=== PATIENT | female | born 1965 | race Hispanic/Latino ===

== ENCOUNTER 2024-07-16 05:59 | Day surgery (SDC) | payer OTHER ==
[~2024-07-16] VITALS: Ht 152.4 cm; Wt 104.3 kg
[2024-07-16] VITALS (11 sets, daily range): BP systolic 98–133; BP diastolic 51–65; PULSE 7–78; RESP 15–16; TEMP 97.3–98.1
[~2024-07-16 05:59] MED LIST: INSU100I26 SQ; LEVO25CA4 PO; METF-527 PO; METO10TA41 PO; PRILOSEC PO
[2024-07-16] MEDS: 0.9%NACL 1000ML 1,000 ML IV ONE (06:59)
[2024-07-16] MEDS ORDERED: proPOFol 10 MG/ML 20ML VIAL IV ONE ×3 (08:22→08:33)
== END 2024-07-16 09:50 | disposition home or self-care (01) ==
LOC: ENDO 05:59 → DAH 05:59 → ENDO 09:50
PROVIDERS: ATTEND Internal Medicine
DX: D50.0 Iron deficiency anemia secondary to blood loss (chronic) (principal); K31.811 Angiodysplasia of stomach and duodenum with bleeding; K31.89 Other diseases of stomach and duodenum; E11.9 Type 2 diabetes mellitus without complications; Z79.84 Long term (current) use of oral hypoglycemic drugs; Z79.899 Other long term (current) drug therapy; Z53.8 Procedure and treatment not carried out for other reasons
CPT/HCPCS: 43255; 82948 ×2; 45378; J7030 ×2; J2704 ×2; A4649; A4615; A4215 ×2; A4223; A4222; A4221; A4663; A4606; G0121; J3490

== ENCOUNTER 2024-08-13 07:32 | Day surgery (SDC) | payer OTHER ==
[~2024-08-13] VITALS: Ht 152.4 cm; Wt 104.3 kg
[2024-08-13] VITALS (11 sets, daily range): BP systolic 120–145; BP diastolic 38–77; PULSE 75–89; RESP 12–18; TEMP 97.3–97.5
[2024-08-13] MEDS: 0.9%NACL 1000ML 1,000 ML IV ONE (10:45)
[2024-08-13] MEDS ORDERED: proPOFol 10 MG/ML 20ML VIAL IV ONE (11:09)
[2024-08-13] MEDS ORDERED: LIDOCAINE HCL 1% 20 ML VIAL ONE (11:10)
--- NOTE | 2024-08-13 12:38 | NUR ---
Patient aox4. Denies c/o pain or discomfort. Voiced understanding to EGD precautions and follow up expectations. Full liquid diet importance. Ambulated to bathroom with standby assist. Voided large amount of clear urine. PIV discontinued with catheter tip intact. Full and complete Discharge instructions given to Patient and Family. All questions answered. W/C to POV with Family to Home.
== END 2024-08-13 12:30 | disposition home or self-care (01) ==
LOC: ENDO 07:32 → DAH 07:32 → ENDO 12:30
PROVIDERS: ATTEND Internal Medicine Gastroenterology
DX: D50.9 Iron deficiency anemia, unspecified (principal); K31.89 Other diseases of stomach and duodenum; K21.00 Gastro-esophageal reflux disease with esophagitis, without bleeding; K29.50 Unspecified chronic gastritis without bleeding; K31.811 Angiodysplasia of stomach and duodenum with bleeding; K92.1 Melena; E66.01 Morbid (severe) obesity due to excess calories; E11.9 Type 2 diabetes mellitus without complications; Z68.41 Body mass index [BMI] 40.0-44.9, adult; Z90.49 Acquired absence of other specified parts of digestive tract; Z98.890 Other specified postprocedural states
CPT/HCPCS: 43270; 82948; 43239; J7030 ×2; J2704; A4615; A4215; A4223; A4222; A4221; A4663; A4606; J3490

== ENCOUNTER 2025-02-11 09:04 | Inpatient (IN) | payer OTHER ==
[~2025-02-11] VITALS: Ht 152.4 cm; Wt 106.0 kg
[~2025-02-11 09:04] MED LIST changes: -LEVO25CA4 PO; +LEVO25CA5 PO
--- NOTE | 2025-02-11 09:16 | EKG ---
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
--- NOTE | 2025-02-11 09:54 | HMCIMG ---
Exam Type: CHEST 1VW Clinical Information: CHEST PAIN Comparison: None Findings: The lungs are clear of infiltrates. The heart is normal in size. The bony and soft tissue structures of the chest are unremarkable. Impression: Clear lungs.
[2025-02-11 10:22] LABS: ALBUMIN 3.4 g/dL (3.5-5.0); BILIRUBIN,DIRECT 0.3 mg/dL (0.0-0.3); CREATININE 0.5 mg/dL (0.5-1.0); POTASSIUM 4.1 mmol/L (3.5-5.1); TOTAL PROTEIN, SERUM 6.9 g/dL (6.0-8.3)
[2025-02-11 11:55] LABS: APPEARANCE,URINE CLEAR (CLEAR); BILIRUBIN,URINE NEGATIVE (NEGATIVE); COLOR,URINE LIGHT-YELLOW (YELLOW); GLUCOSE, URINE (UA) >=1000 mg/dL (NEGATIVE); KETONES,URINE 5 mg/dL (NEGATIVE); LEUKOCYTE ESTERASE ,URINE 75 Leu/uL (NEGATIVE); NITRATE,URINE 2+ (NEGATIVE); OCCULT BLOOD,URINE NEGATIVE (NEGATIVE); PROTEIN,URINE NEGATIVE (NEGATIVE); UROBILINOGEN,URINE 0.2 mg/dL (0.2-1.0)
[2025-02-11 11:56] LABS: ADD UA MICROSCOPIC YES
[2025-02-11 12:02] LABS: RBC,URINE 0-1 /HPF (0-1); SQUAMOUS EPITHELIAL CELL,UR RARE /HPF (0-2)
[2025-02-11 12:17] LABS: BACTERIA,URINE Few /HPF (None Seen)
[2025-02-11 12:17] LABS: BASOPHILS # (AUTO) 0.04 K/uL (0.00-0.20); BASOPHILS % (AUTO) 0.7 % (0.0-5.0); EOSINOPHILS # (AUTO) 0.13 K/uL (0.00-0.70); EOSINOPHILS % (AUTO) 2.4 % (0.0-8.0); HEMATOCRIT 23.1 % (36-48); IMMATURE GRANULOCYTE ABSOLUTE 0.03 K/uL (0-1); LYMPHOCYTES % (AUTO) 17.5 % (21.0-51.0); MEAN CORPUSCULAR HEMOGLOBIN 15.4 pg (27.0-33.0); MEAN CORPUSCULAR HGB CONC 24.7 g/dL (32.0-36.0); MEAN CORPUSCULAR VOLUME 62.3 fL (79-99); MONOCYTES # (AUTO) 0.4 K/uL (0.1-1.0); MONOCYTES % (AUTO) 7.4 % (3.0-13.0); NEUTROPHILS # (AUTO) 3.9 K/uL (1.8-7.7); NEUTROPHILS % (AUTO) 71.4 % (40.0-77.0); NUCLEATED RED BLOOD CELLS 0.4 % (0.0-0.19); PLATELET COUNT (AUTO) 151 K/uL (130-400); RED BLOOD CELL COUNT(AUTO) 3.71 MIL/uL (4.00-5.50); RED CELL DISTRIBUTION WIDTH 20.8 % (11.0-15.5); WHITE BLOOD COUNT (AUTO) 5.4 K/uL (4.8-10.8)
--- NOTE | 2025-02-11 16:25 | ERN ---
ED Note History of Present Illness Stated Complaint: SOB Chief Complaint: Shortness of Breath Time Seen by MD: 09:07 Dictation: 51-year-old female presenting to the emergency department with generalized weakness and feeling pale patient has a history of chronic anemia and reports from time to time she requires blood transfusion no active bleeding. Allergies: Coded Allergies: aspirin (Unverified Allergy, Unknown, 07/15/24) oxycodone (Unverified Allergy, Unknown, 07/15/24) Home Meds Reported Medications Metoclopramide HCl (Reglan 10 mg Tab) 10 Mg Tablet, 10 MG PO BID, TAB 07/15/24 [Prilosec] No Conflict Check, 40 MG PO BID 07/15/24 Levothyroxine Sodium (Levothyroxine) 25 Mcg Capsule, 25 MCG PO HS, CAP 07/15/24 Metformin HCl (Metformin HCl ER) 1,000 Mg Tab.er.24, 1000 MG PO BID 07/15/24 Insulin Glargine,Hum.rec.anlog (Basaglar Kwikpen U-100) 100 Unit/Ml (3 Ml) Insuln.pen, 100 UNIT SQ HS, SYRINGE 07/15/24 Past Medical History Past Medical History: Diabetes-Type II, Other Additional Past Medical Hx: GAVE Surgical History: Appendectomy, Other Surgical History Other: LEFT OOPHRECTOMY Review of System Dictation Constitutional: Negative for fever,chills, and weight loss Eyes: Negative for injury, pain,redness, and discharge ENT: Negative for injury,pain or swelling Cardiovascular: Negative for chest pain, palpitations, and edema Respiratory: Negative for shortness of breath, cough, and wheezing, Abdomen/GI: Negative for abdominal pain, nausea, vomiting, diarrhea, and constipation Back: Negative for injury and pain : Negative for injury, bleeding and discharge MS/Extremity: Negative for injury and deformity Skin: Negative for rash, and discoloration Neuro for HPI Initial Vital Sign VS Vital Signs Date Time Temp Pulse Resp B/P (MAP) Pulse Ox O2 Delivery O2 Flow Rate FiO2 02/11/25 09:04 98.1 76 18 123/46 99 Room Air 0 02/11/25 10:45 21 Physical Exam Dictation General: awake, alert, NAD Head/Face: Normocephalic, atraumatic Eyes: PERRL, EOMI, vision at baseline ENT: oral cavity clear, TMs clear, no signs of infection Neck: Trachea midline, supple, no nuchal rigidity Cardiovascular: RRR, normal S1/S2, No MRGs, no JVD Respiratory: CTAB, no respiratory distress, No rales or wheezes Abdomen: Soft, non-tender, non-distended, normal bowel sounds, no guarding or rebound. Skin: Warm, dry, normal turgor, no rash, appears pale MS/Extremity: Pulses equal, no cyanosis, neurovascular intact, FROM Neuro: COAx4, GCS 15, strength 5/5, CN 2-12 intact, normal cerebellar exam, normal gait, Results (Laboratory/Radiology) Laboratory/Radiology Laboratory Tests Test 02/11/25 09:30 02/11/25 10:40 02/11/25 11:29 Sodium Level 132 mmol/L (136-145) L Potassium Level 4.1 mmol/L (3.5-5.1) Chloride Level 99 mmol/L (101-111) L Carbon Dioxide Level 28 mmol/L (21-32) Blood Urea Nitrogen 10 mg/dL (7-18) Creatinine 0.5 mg/dL (0.5-1.0) Glomerular Filtration Rate Calc 109 mL/min (>90) Random Glucose 380 mg/dL (70-105) H Total Calcium 8.8 mg/dL (8.5-10.1) Total Bilirubin 1.0 mg/dL (0.2-1.0) Direct Bilirubin 0.3 mg/dL (0.0-0.3) Aspartate Amino Transf (AST/SGOT) 27 U/L (10-37) Alanine Aminotransferase (ALT/SGPT) 29 U/L (12-78) Alkaline Phosphatase 113 U/L (50-136) Total Creatine Kinase 15 U/L (21-232) L Troponin I High Sensitivity 10 ng/L (4-50) B-Type Natriuretic Peptide 30 pg/mL (0-100) Total Protein 6.9 g/dL (6.0-8.3) Albumin 3.4 g/dL (3.5-5.0) L Urine Color LIGHT-YELLOW (YELLOW) Urine Appearance CLEAR (CLEAR) Urine pH 6.0 (5.0-8.0) Urine Specific [place] 1.020 (1.001-1.031) Urine Protein NEGATIVE mg/dL (NEGATIVE) Urine Glucose (UA) >=1000 mg/dL (NEGATIVE) H Urine Ketones 5 mg/dL (NEGATIVE) H Urine Occult Blood NEGATIVE (NEGATIVE) Urine Nitrate 2+ (NEGATIVE) H Urine Bilirubin NEGATIVE mg/dL (NEGATIVE) Urine Urobilinogen 0.2 mg/dL (0.2-1.0) Urine Leukocyte Esterase 75 Jojo/uL (NEGATIVE) H Urine RBC 0-1 /HPF (0-1) Urine WBC 11-25 /HPF (0-1) H Urine Squamous Epithelial Cells RARE /HPF (0-2) Urine Bacteria Few /HPF (None Seen) White Blood Count 5.4 K/uL (4.8-10.8) Red Blood Count 3.71 MIL/uL (4.00-5.50) L Hemoglobin 5.7 g/dL (12.0-16.0) *L Hematocrit 23.1 % (36-48) L Mean Corpuscular Volume 62.3 fL (79-99) L Mean Corpuscular Hemoglobin 15.4 pg (27.0-33.0) L Mean Corpuscular Hemoglobin Concent 24.7 g/dL (32.0-36.0) L Red Cell Distribution Width 20.8 % (11.0-15.5) H Platelet Count 151 K/uL (130-400) Mean Platelet Volume fL (7.5-10.5) Immature Granulocyte % (Auto) 0.6 % (0-1) Neutrophils (%) (Auto) 71.4 % (40.0-77.0) Lymphocytes (%) (Auto) 17.5 % (21.0-51.0) L Monocytes (%) (Auto) 7.4 % (3.0-13.0) Eosinophils (%) (Auto) 2.4 % (0.0-8.0) Basophils (%) (Auto) 0.7 % (0.0-5.0) Neutrophils # (Auto) 3.9 K/uL (1.8-7.7) Lymphocytes # (Auto) 1.0 K/uL (1.0-4.8) Monocytes # (Auto) 0.4 K/uL (0.1-1.0) Eosinophils # (Auto) 0.13 K/uL (0.00-0.70) Basophils # (Auto) 0.04 K/uL (0.00-0.20) Absolute Immature Granulocyte (auto 0.03 K/uL (0-1) Nucleated Red Blood Cells 0.4 % (0.0-0.19) H Red Blood Cell Morphology See comments Labs Reviewed?: Yes EKG Comment: Heart rate 94 normal sinus rhythm normal intervals ED Course ED Course Orders Procedure Category Date Status Time Vital Signs Per CPOE 02/11/25 Transmitted Routine 09:09 B-Type Natriuretic LAB 02/11/25 Complete Peptide 09:09 Chest 1vw RAD 02/11/25 Resulted 09:09 12 Lead Ekg Tracing- EKG 02/11/25 Complete Technical 09:09 Oxygen By Nc/Pulse Ox CPOE 02/11/25 Transmitted 09:09 Maintain Iv CPOE 02/11/25 Transmitted 09:09 Iv Insertion CPOE 02/11/25 Transmitted 09:09 Cardiac Monitoring CPOE 02/11/25 Transmitted 09:09 Pulse Oximetry With CPOE 02/11/25 Transmitted Vs And Prn 09:09 Activity: Br W/Brp CPOE 02/11/25 Transmitted With Assist 09:09 Urinalysis Profile LAB 02/11/25 Complete 09:09 Hepatic Function Panel LAB 02/11/25 Complete 09:10 Creatine Kinase, Total LAB 02/11/25 Complete 09:10 Troponin I High LAB 02/11/25 Complete Sensitivity 09:10 Basic Metabolic Panel LAB 02/11/25 Complete 09:10 Cbc With Differential LAB 02/11/25 Complete 11:23 Cbc With Differential LAB 02/11/25 Logged 11:25 Culture Urine MARTIN 02/11/25 In Process 12:01 Type And Screen BBK 02/11/25 In Process 12:22 Rbc-No Active Bleeding BBK 02/11/25 In Process 12:47 Vital Signs Date Time Temp Pulse Resp B/P (MAP) Pulse Ox O2 Delivery O2 Flow Rate FiO2 02/11/25 13:52 98.1 85 18 136/58 96 Room Air* 0 02/11/25 12:11 98.1 91 18 146/53 97 Room Air* 0 21 02/11/25 10:45 91 18 121/ 97 Room Air* 0 21 02/11/25 09:04 98.1 76 18 123/46 99 Room Air 0 Medical Decision Making MDM MDM: Differential diagnosis: Rationale: Tests considered and ordered secondary to shared decision making include: labs, ECG and radiology Previous outside records reviewed: Old ER visits. Risk of complication and/or morbidity or mortality of patient management: None Medications-Per medication reconciliation Need for hospitalization: Patient does meet criteria for hospitalization. Need for emergency major/minor surgery: No There are no social concerns with this patient. Prescription drug management Prescriptions will include symptomatic care Patient's prior external medical records from other ER visits were reviewed by me as indicated. Prior testing and results from previous visits were reviewed. Prior tests were taken into account with medical decision making and resource utilization, independent historian/historians were used to obtain complete me dical history. I independently interpreted the test that were performed, results were reviewed by me and considered findings on radiology if ordered. Medical management and examination interpretation discussions were had by me with other qualified healthcare professionals as indicated for the patient's care. 59-year-old female with severe symptomatic anemia blood transfusion ordered Critical Care Note Comment(s) Total critical care time was 33 minutes. Excluding time for procedures. Management of critically ill patient with concern for acute decompensation. Management included interpretation of laboratory values and imaging, hemodynamics, time for consultation with consultants and admitting physician. DX & DISP Disposition: Inpatient Departure Impression: Primary Impression: Severe anemia Condition: Stable Referrals: SELF,REFERRAL (PCP) GEORGE BALLESTEROS MD Feb 11, 2025 16:25
[2025-02-11] MEDS ORDERED: dexaMETHasone SOD PHOSPHATE 4 MG/ML 1ML VIAL IVP PRN (17:00)
[2025-02-11] MEDS ORDERED: ondanSETRON 4MG INJ IVP PRN (17:00)
[2025-02-11] MEDS ORDERED: DEXTROSE 50%-WATER 50 ML DISP.SYRIN IV PRN (17:00)
[2025-02-11] MEDS ORDERED: acetaMINOPHEN 325 MG TAB PO PRN (17:00)
[2025-02-11] MEDS ORDERED: DiphenhydrAMINE HCL 50 MG/ML VIAL IV PRN (17:00)
[2025-02-11] MEDS ORDERED: GLUCAGON 1MG KIT 1 MG ML IM PRN (17:00)
[2025-02-11] MEDS: cefTRIAXone 1G VIAL IVPB SCH (17:01)
[2025-02-11] MEDS: PANTOPrazole 40 MG/VIAL IVP SCH (17:01)
[2025-02-11] MEDS: INSULIN humuLIN R 100 UNIT/ML 3ML SQ SCH (17:03)
[2025-02-11] MEDS: 0.9%NACL 1000ML 1,000 ML IV SCH (17:03)
[2025-02-11 17:28] LABS: % IRON SATURATION 3.1 % (22-44)
[2025-02-11 17:32] LABS: FERRITIN 4 ng/mL (15-150); LACTATE DEHYDROGENASE 160 U/L (81-234)
--- NOTE | 2025-02-11 17:39 | HMCIMG ---
US VENOUS DOPPLER BILATERAL HISTORY: DVT COMPARISON: None TECHNIQUE: Bilateral lower extremity venous Doppler ultrasound study was performed. FINDINGS: The common femoral, femoral, popliteal, and posterior tibial veins are visualized. Normal flow with augmentation and compressibilities are demonstrated. The greater saphenous veins are also seen and grossly patent. IMPRESSION: 1. No evidence of deep venous thrombosis is seen.
[2025-02-11 18:37] LABS: INR 1.03 (0.85-1.15); PROTHROMBIN TIME 10.9 SEC (9.6-11.6)
--- NOTE | 2025-02-11 18:52 | HP ---
[facility] Date of Service: Feb 11, 2025 Time of Service: 18:32 HISTORY OF PRESENT ILLNESS: Date of service: 02/11/2025, patient was seen in ER 17 This is a 59-year-old female with underlying history of gastric antral vascular ectasia, history of angioectasias involving the stomach requiring endoscopy, chronic anemia with iron deficiency on outpatient IV iron infusion therapy, hypothyroidism, obesity who presented to the ER for further evaluation of fatigue, shortness of breath and dyspnea on exertion. Symptoms have been ongoing for the past and has been progressively getting worse. Patient reports having generalized debility as well. Patient reports that she has had history of chronic anemia and has previously needed blood transfusion. Her hemoglobin usually runs close to 8-10. She is followed by Dr. Slaughter with Hematology as outpatient and is on outpatient IV iron therapy. Her last dose of IV iron infusion therapy was in October this year. Last time, patient needed blood transfusion was about 3-4 years ago. Patient has had previous endoscopy with most recent being in 08/2024 at [facility] where patient was found to have angioectasias involving the stomach requiring argon plasma coagulation. Patient was also found to have LA grade a reflux esophagitis and chronic gastritis. Patient denies noticing overt signs of GI bleeding and denies any melena, hematochezia, or hematemesis. She denies previous history of AR or cardiac comorbidities. On presentation to the hospital, patient was noted to be afebrile with T-max of 98.1 F, blood pressure of 123/46, and heart rate of 76. Labs on presentation showed WBC count of 5400, hemoglobin 5.7, MCV of 62, platelet count of 426164. BMP remarkable for corrected sodium of 136, potassium 4.1, creatinine 0.5, blood glucose of 380. Patient will be admitted for management of severe anemia with iron deficiency in the setting of chronic angioectasias in the stomach with concerns for chronic GI bleeding. Consultation with both Hematology and Gastroenterology will be requested. Patient noted to have multiple antibodies on type and screen and we will attempt to transfuse at least 2 units of most compatible PRBC. We will also check for Ritchie test to rule out any underlying hemolysis. Anticipate hospitalization for at least 48 hours, we will monitor this patient closely. REVIEW OF SYSTEMS CONSTITUTIONAL: Denies fevers, chills, or night sweats. No unintentional weight loss reported. NEUROLOGICAL: Denies headache, amaurosis fugax, motor weakness, sensory deficit, vertigo/spinning sensation, gait abnormalities, or tremors. ENT: No hearing loss, otalgia, otorrhea, rhinitis, rhinorrhea, hoarseness, or sore throat. CARDIOVASCULAR: Denies any exertional angina, dyspnea on exertion, orthopnea, paroxysmal nocturnal dyspnea, palpitations, life-threatening arrhythmias, claudication. PULMONARY: Denies any shortness of breath, cough, phlegm/sputum, hemoptysis, pleuritic chest pain. SLEEP: Denies morning headaches, daytime somnolence or napping. Denies difficulty falling asleep, staying asleep, waking from sleep. Denies knowledge of snoring. GASTROINTESTINAL: Denies any type of dysphagia to either liquids or solids. Denies nausea, vomiting, pyrosis, early satiety, abdominal pain, diarrhea, constipation, or changes in stool consistency or caliber. Denies coffee-ground emesis, hematemesis, hematochezia, or melanotic stools. GENITOURINARY: Denies frequency, urgency, nocturia, hematuria or incontinence (Storage/Irritative symptoms.) Low urinary stream, straining to void, urinary intermittency or hesitancy, splitting of the voiding stream, terminal dribbling. ENDOCRINOLOGIC: Denies polyuria, polydipsia, polyphagia or heat/cold intolerances. HEMATOLOGIC: Anemia, shortness of breath, dyspnea on exertion, fatigue ONCOLOGIC: Denies personal history of malignancy. DERMATOLOGIC: Denies rashes or pruritus. PSYCHIATRIC: Denies any suicidal or homicidal ideation. Denies hallucinations. PAST MEDICAL HISTORY: History of gastric vascular angiectasia, history of chronic anemia, history of iron deficiency anemia requiring IV iron therapy as outpatient, obesity, hypothyroidism, type 2 diabetes mellitus PAST SURGICAL HISTORY: Multiple upper endoscopies previously, history of appendectomy, history of left oophorectomy PAST SOCIAL HISTORY: Currently denies active smoking or alcohol consumption FAMILY HISTORY: Denies pertinent family history Allergies: Patient reports having allergic reaction to aspirin, oxycodone Home medications: Patient will be bringing list of home medications to be reconciled and updated Coded Allergies: aspirin (Unverified Allergy, Unknown, 07/15/24) oxycodone (Unverified Allergy, Unknown, 07/15/24) PHYSICAL EXAM GENERAL APPEARANCE: The patient is awake, alert, and oriented, in no acute cardiopulmonary distress. Patient is obese and appears pale NEUROLOGICAL: Cranial nerves II-XII grossly intact. Motor is 5/5 in bilateral upper and lower extremities proximal to distal. No sensory deficits. HEENT: Face is symmetric. Pupils are equal and reactive. Extraocular movements are intact. NECK: Supple. No JVD. No thyromegaly. No submental, submandibular, pre-/postauricular, occipital or supraclavicular lymphadenopathy. CHEST: Normal chest expansion. No Telemetry. LUNGS: Absence of any rales, rhonchi or any wheezing. CARDIOVASCULAR: Regular. S1 and S2 normal. No appreciable rubs, murmurs or gallops. ABDOMEN: Soft, nontender, and nondistended. There is no rebound, voluntary guarding, or rigidity. : Deferred. No Pino. EXTREMITIES: Non-edematous and not cyanotic. No clubbing. Good capillary refill. SKIN: No skin breakdown. Vital Sign (Last 24 Hours) 02/11/25 13:52 Temp 98.1 Pulse 85 Resp 18 B/P (MAP) 136/58 Pulse Ox 96 O2 Delivery Room Air* O2 Flow Rate 0 FiO2 21 LABS: Laboratory: Test 02/11/25 16:50 02/11/25 11:29 02/11/25 10:40 02/11/25 09:30 Range/Units Whole Blood Glucose 269 H 70-110 MG/DL White Blood Count 5.4 4.8-10.8 K/uL Red Blood Count 3.71 L 4.00-5.50 MIL/uL Hemoglobin 5.7 *L 12.0-16.0 g/dL Hematocrit 23.1 L 36-48 % Mean Corpuscular Volume 62.3 L 79-99 fL Mean Corpuscular Hemoglobin 15.4 L 27.0-33.0 pg Mean Corpuscular Hemoglobin Concent 24.7 L 32.0-36.0 g/dL Red Cell Distribution Width 20.8 H 11.0-15.5 % Platelet Count 151 130-400 K/uL Mean Platelet Volume 7.5-10.5 fL Immature Granulocyte % (Auto) 0.6 0-1 % Neutrophils (%) (Auto) 71.4 40.0-77.0 % Lymphocytes (%) (Auto) 17.5 L 21.0-51.0 % Monocytes (%) (Auto) 7.4 3.0-13.0 % Eosinophils (%) (Auto) 2.4 0.0-8.0 % Basophils (%) (Auto) 0.7 0.0-5.0 % Neutrophils # (Auto) 3.9 1.8-7.7 K/uL Lymphocytes # (Auto) 1.0 1.0-4.8 K/uL Monocytes # (Auto) 0.4 0.1-1.0 K/uL Eosinophils # (Auto) 0.13 0.00-0.70 K/uL Basophils # (Auto) 0.04 0.00-0.20 K/uL Absolute Immature Granulocyte (auto 0.03 0-1 K/uL Nucleated Red Blood Cells 0.4 H 0.0-0.19 % Red Blood Cell Morphology See comments Urine Color LIGHT-YELLOW YELLOW Urine Appearance CLEAR CLEAR Urine pH 6.0 5.0-8.0 Urine Specific Hallie 1.020 1.001-1.031 Urine Protein NEGATIVE NEGATIVE mg/dL Urine Glucose (UA) >=1000 H NEGATIVE mg/dL Urine Ketones 5 H NEGATIVE mg/dL Urine Occult Blood NEGATIVE NEGATIVE Urine Nitrate 2+ H NEGATIVE Urine Bilirubin NEGATIVE NEGATIVE mg/dL Urine Urobilinogen 0.2 0.2-1.0 mg/dL Urine Leukocyte Esterase 75 H NEGATIVE Jojo/uL Urine RBC 0-1 0-1 /HPF Urine WBC 11-25 H 0-1 /HPF Urine Squamous Epithelial Cells RARE 0-2 /HPF Urine Bacteria Few None Seen /HPF Sodium Level 132 L 136-145 mmol/L Potassium Level 4.1 3.5-5.1 mmol/L Chloride Level 99 L 101-111 mmol/L Carbon Dioxide Level 28 21-32 mmol/L Blood Urea Nitrogen 10 7-18 mg/dL Creatinine 0.5 0.5-1.0 mg/dL Glomerular Filtration Rate Calc 109 >90 mL/min Random Glucose 380 H 70-105 mg/dL Total Calcium 8.8 8.5-10.1 mg/dL Iron Level 16 L 50-170 mcg/dL Total Iron Binding Capacity 514 H 250-450 mcg/dL Percent Iron Saturation 3.1 L 22-44 % Ferritin 4 L 15-150 ng/mL Total Bilirubin 1.0 0.2-1.0 mg/dL Direct Bilirubin 0.3 0.0-0.3 mg/dL Aspartate Amino Transf (AST/SGOT) 27 10-37 U/L Alanine Aminotransferase (ALT/SGPT) 29 12-78 U/L Alkaline Phosphatase 113 50-136 U/L Lactate Dehydrogenase 160 81-234 U/L Total Creatine Kinase 15 L 21-232 U/L Troponin I High Sensitivity 10 4-50 ng/L B-Type Natriuretic Peptide 30 0-100 pg/mL Total Protein 6.9 6.0-8.3 g/dL Albumin 3.4 L 3.5-5.0 g/dL Current Medications Medications (Trade) Dose Ordered Sig/Gary Route PRN Reason Start Time Stop Time Status Last Admin Dose Admin Acetaminophen (TYLenol 325MG TAB) 650 mg Q6H PRN PO MILD PAIN (1-3) 02/11/25 17:00 03/13/25 16:59 Ceftriaxone Sodium (ROCEphine 1G INJ) 1 gm Q24H IVPB 02/11/25 17:00 02/21/25 16:59 02/11/25 17:01 1 GM Dexamethasone Sodium Phosphate (dexaMETHasone 4MG/ML 1ML VIAL) 10 mg DAILY PRN IVP premedication for blood transf 02/11/25 17:00 03/13/25 16:59 Dextrose (D50w) 50 ml AD PRN IV HYPOGLYCEMIA PROTOCOL 02/11/25 17:00 03/13/25 16:59 Diphenhydramine HCl (BENAdryl INJ) 25 mg DAILY PRN IV premedications for blood trans 02/11/25 17:00 03/13/25 16:59 Folic Acid (FOLic ACID 1 MG TABLET) 1 mg DAILY PO 02/12/25 09:00 03/14/25 08:59 Glucagon (Glucagon 1mg Kit) 1 mg AD PRN IM HYPOGLYCEMIA PROTOCOL 02/11/25 17:00 03/13/25 16:59 Insulin Glargine (LANtus 100 UNITS/ML 10 ML VIAL) 30 units HS SQ 02/11/25 21:00 03/13/25 20:59 Insulin Human Regular (humuLIN R 100 UNIT/ML 3ML) INSULIN SLIDING SCAL... ACHS SQ 02/11/25 16:30 03/13/25 16:29 02/11/25 17:03 10 UNIT Iron Sucrose 300 mg/Sodium Chloride 250 ml @ 83 mls/hr DAILY IV 02/11/25 19:00 02/14/25 19:00 Ondansetron HCl (zoFRAN 4MG INJ) 4 mg Q6H PRN IVP NAUSEA/VOMITING 02/11/25 17:00 03/13/25 16:59 Pantoprazole Sodium (PROTonix 40MG INJ) 40 mg Q12H IVP 02/11/25 16:30 03/13/25 16:29 02/11/25 17:01 40 MG Sodium Chloride 1,000 ml @ 50 mls/hr Q20H IV 02/11/25 17:00 03/13/25 16:59 02/11/25 17:03 50 MLS/HR DIAGNOSTICS / RADIOLOGY: SERVICE 1631 REASON: r/o DVT of the bilateral lower extremities ORDERING PHYSICIAN: MARQUES BARRIENTOS MD PROCEDURE: VENOUS HERMANN - US VENOUS DOPPLER BILATERAL US VENOUS DOPPLER BILATERAL HISTORY: DVT COMPARISON: None TECHNIQUE: Bilateral lower extremity venous Doppler ultrasound study was performed. FINDINGS: The common femoral, femoral, popliteal, and posterior tibial veins are visualized. Normal flow with augmentation and compressibilities are demonstrated. The greater saphenous veins are also seen and grossly patent. IMPRESSION: 1. No evidence of deep venous thrombosis is seen. DICTATED BY: DARYL SCHULZ MD DATE: 02/11/251735 ELECTRONICALLY SIGNED BY: DARYL SCHULZ MD DATE: 02/11/251738 SERVICE 0909 REASON: CHEST PAIN ORDERING PHYSICIAN: GEORGE BALLESTEROS MD PROCEDURE: CXR1VW - CHEST 1VW Exam Type: CHEST 1VW Clinical Information: CHEST PAIN Comparison: None Findings: The lungs are clear of infiltrates. The heart is normal in size. The bony and soft tissue structures of the chest are unremarkable. Impression: Clear lungs. 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, POA History of suspected chronic upper GI bleed, POA Mild UTI, POA Uncontrolled hyperglycemia, POA History of type 2 diabetes mellitus, POA Morbid obesity, POA Hypertension, POA Hypothyroidism, POA History of anemia requiring prior blood transfusions, POA PLAN: Patient will be admitted to cardiac telemetry floor Patient denies overt signs of GI bleeding, patient has previous history of angioectasia involving the stomach requiring argon plasma coagulation with last endoscopy being close to 08/2024 We will obtain stool guaiac and we will monitor closely for any overt signs of GI bleeding Patient will be transfused 2 units of PRBC for hemoglobin of 5.7, patient has multiple antibodies in her blood and is awaiting donor PRBC that is most compatible given multiple underlying antibodies, we will premedicate with dexamethasone and IV Benadryl prior to blood transfusion Consultation will be requested with Dr. Slaughter with Hematology We will also obtain hemolysis panel including Ritchie test, LDH and haptoglobin We will keep patient on gentle IV hydration with NS at 50 mL/hour We will start patient on IV iron sucrose therapy x3 days We will notify Gastroenterology about this patient's admission given prior history of GAVE and multiple endoscopies Patient to continue with rest of her home medications We will keep patient on IV Rocephin for management of UTI Patient will be placed on sliding scale insulin a.c. and HS, we will start Lantus 30 units at bedtime Addendum: 1900, 02/11/2025: Patient on further workup was found to be direct Ritchie positive, discussed patient's case with Dr. Slaughter with Hematology, recommendations to hold off on any transfusion given Ritchie positivity. Patient will be started on high-dose dexamethasone 40 mg Q24 hours, patient will be transferred to ICU, due to patient having uncontrolled hyperglycemia with concerns for severe steroid induced hyperglycemia, we will start patient on IV insulin drip while patient remains on high-dose dexamethasone therapy. We will have Hematology follow up with the patient, concern remains for possible autoimmune hemolysis complicating iron deficiency anemia, we will follow up results of LDH and haptoglobin as well. We will request ICU consultation as well. Plan of care was discussed with patient at bedside. Date of service: 02/11/2025 Plan of care was discussed with patient at bedside, Marques Barrientos MD Advanced Care Planning: Which of the following were discussed: Hospice care: Yes __ No _X_ Therapeutic options: Yes _X_ No __ Advance directives: Yes _X_ No __ Other discussions: Discussed with who?: Patient Voluntary nature of this service was explained to the patient? Yes _x_ No __ Amount of time spent: 20 minutes MARQUES BARRIENTOS MD Feb 11, 2025 18:52
[2025-02-11] MEDS: PHARMACY COMMUNICATION MISC SCH ×2 (19:30)
[2025-02-11] MEDS: IRON sUCROse COMPLEX 300 MG in 0.9% NACL 250ML 250 ML IV SCH (19:39)
[2025-02-11] MEDS ORDERED: INSULIN REGULAR, HUMAN 3ML 100 UNIT in 0.9%NACL 100ML 99 ML IV PRN (20:00)
[2025-02-11 20:42] LABS: PARTIAL THROMBOPLASTIN TIME 26.6 SEC (26.3-35.5)
[2025-02-11] MEDS ORDERED: INSULIN GLARgine 100 UNITS/ML 10 ML VIAL SQ SCH (21:00)
--- NOTE | 2025-02-11 21:59 | CONS ---
[facility] Critical Care consultation Note Date Patient Seen: Feb 11, 2025 Time of Visit: 21:53 Supervising Physician: Dr. Oumar Lester Reason for Consultation: Chronic anemia Consulting Physician: Dr. 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, POA DM type 2, with hyperglycemia, poorly controlled, POA Class three obesity, BMI of 44.9, POA Acute cystitis, POA PLAN: Continue ICU care Continue cardiac monitoring H&H q.6 Continue blood glucose check q.4, initiate insulin drip if persistently as elevated sugar above 350 Complete bedrest for now NPO for now Bilateral SCDs Replete electrolyte accordingly Monitor temperature curve Antibiotic management per primary Rest of plan care of primary and Hematology Safety precautions Keep head of bed above 30 Incentive spirometry DuoNeb q.6 as needed for shortness of breaths CBC, CMP, magnesium level daily HPI: 59-year-old female with past medical history of chronic iron deficiency anemia, GAVE, DM type 2, morbid obesity, hypothyroidism, presented to ED with complaint of worsening generalized body weakness with associated shortness of breath for past three weeks and found to have low hemoglobin level, Ritchie test positive, concerning for possible autoimmune hemolytic anemia. patient was seen and examined in her room in the ICU with no relatives present at bedside. According to her she was 1st diagnosed with GAVE seven years ago and [place]. Patient also required periodic infusion of iron, and blood transfusion. Her last blood transfusion was May of last year. However she noticed that for the past several weeks she has been having issues with progressive weakness and generalized body weakness, her condition worsen now with shortness of breaths . She denies any black tarry stool, hematemesis, or associated abdominal pain. She decided to come to ED for further medical evaluation. Initial evaluation in ED showed vital signs of T-max of 98.1 F, blood pressure of 123/46, and heart rate of 76. Her initial CBC significant for hemoglobin of 5.7 hematocrit of 23.1, platelet of 1.22, her chemistry revealed sodium of 132, potassium 4.1, creatinine 0.5, blood glucose of 380. Her Ritchie test is also positive. Chest x-ray unrevealing for any acute infiltrates, her venous Doppler did not reveal any thrombosis. Hematology has been consulted and recommended patient be started on high-dose steroid, start her on insulin drip, and hold off on two blood transfusion for the meantime. ICU is consulted for critical care evaluation and management. At present patient is currently hemodynamically stable, on 2 L of oxygen with appropriate oxygen saturation, normal sinus rhythm on the monitor, with adequate systolic blood pressure. Patient denies any headache, chest pain, abdominal pain, fever, cough, flu-like symptoms. However she is complaining of generalized body weakness, and periodic shortness of breath. Patient denies any smoking, alcohol intake, or illicit drug use. PAST MEDICAL HX: see above PAST SURGICAL HX: noncontributory SOCIAL HISTORY: No tobacco, ETOH, or illicit drug use Coded Allergies: aspirin (Unverified Allergy, Unknown, 07/15/24) oxycodone (Unverified Allergy, Unknown, 07/15/24) REVIEW OF SYSTEMS: 12 point ROS reviewed with patient. Pertinent positives mentioned above. Otherwise negative. PHYSICAL EXAM: GENERAL: alert, weak, awake oriented x 3 HEENT: EOMI, Sclera non icteric, moist mucosa NECK: Supple, no JVD, trachea midline LUNGS: Clear breath sounds bilaterally. No wheezes HEART: Regular rate and rhythm. Normal S1 and S2, without murmurs ABD: Large body habitus EXT: No clubbing cyanosis or edema NEURO: Alert and oriented to person, follows commands Vital Signs (last 8hr) Date Time Temp Pulse Resp B/P (MAP) Pulse Ox O2 Delivery O2 Flow Rate FiO2 02/11/25 21:31 89 19 117/42 98 Room Air* 0 21 02/11/25 21:12 98.1 87 19 146/81 98 Room Air* 0 21 02/11/25 18:40 98.1 83 16 129/58 99 Room Air* 0 21 02/11/25 18:00 98.1 84 16 130/57 96 Room Air* 0 21 02/11/25 15:00 98.1 85 18 99 Room Air* 0 21 LABS: Hematology Labs: Test 02/11/25 11:29 Range/Units White Blood Count 5.4 4.8-10.8 K/uL Red Blood Count 3.71 L 4.00-5.50 MIL/uL Hemoglobin 5.7 *L 12.0-16.0 g/dL Hematocrit 23.1 L 36-48 % Mean Corpuscular Volume 62.3 L 79-99 fL Mean Corpuscular Hemoglobin 15.4 L 27.0-33.0 pg Mean Corpuscular Hemoglobin Concent 24.7 L 32.0-36.0 g/dL Red Cell Distribution Width 20.8 H 11.0-15.5 % Platelet Count 151 130-400 K/uL Mean Platelet Volume 7.5-10.5 fL Immature Granulocyte % (Auto) 0.6 0-1 % Neutrophils (%) (Auto) 71.4 40.0-77.0 % Lymphocytes (%) (Auto) 17.5 L 21.0-51.0 % Monocytes (%) (Auto) 7.4 3.0-13.0 % Eosinophils (%) (Auto) 2.4 0.0-8.0 % Basophils (%) (Auto) 0.7 0.0-5.0 % Neutrophils # (Auto) 3.9 1.8-7.7 K/uL Lymphocytes # (Auto) 1.0 1.0-4.8 K/uL Monocytes # (Auto) 0.4 0.1-1.0 K/uL Eosinophils # (Auto) 0.13 0.00-0.70 K/uL Basophils # (Auto) 0.04 0.00-0.20 K/uL Absolute Immature Granulocyte (auto 0.03 0-1 K/uL Nucleated Red Blood Cells 0.4 H 0.0-0.19 % Red Blood Cell Morphology See comments Chemistry Labs: Test 02/11/25 19:47 02/11/25 09:30 Range/Units Whole Blood Glucose 282 H 70-110 MG/DL Sodium Level 132 L 136-145 mmol/L Potassium Level 4.1 3.5-5.1 mmol/L Chloride Level 99 L 101-111 mmol/L Carbon Dioxide Level 28 21-32 mmol/L Blood Urea Nitrogen 10 7-18 mg/dL Creatinine 0.5 0.5-1.0 mg/dL Glomerular Filtration Rate Calc 109 >90 mL/min Random Glucose 380 H 70-105 mg/dL Total Calcium 8.8 8.5-10.1 mg/dL Iron Level 16 L 50-170 mcg/dL Total Iron Binding Capacity 514 H 250-450 mcg/dL Percent Iron Saturation 3.1 L 22-44 % Ferritin 4 L 15-150 ng/mL Total Bilirubin 1.0 0.2-1.0 mg/dL Direct Bilirubin 0.3 0.0-0.3 mg/dL Aspartate Amino Transf (AST/SGOT) 27 10-37 U/L Alanine Aminotransferase (ALT/SGPT) 29 12-78 U/L Alkaline Phosphatase 113 50-136 U/L Lactate Dehydrogenase 160 81-234 U/L Total Creatine Kinase 15 L 21-232 U/L Troponin I High Sensitivity 10 4-50 ng/L B-Type Natriuretic Peptide 30 0-100 pg/mL Total Protein 6.9 6.0-8.3 g/dL Albumin 3.4 L 3.5-5.0 g/dL Coagulation Labs: Test 02/11/25 18:06 Range/Units Prothrombin Time 10.9 9.6-11.6 SEC Prothromb Time International Ratio 1.03 0.85-1.15 Activated Partial Thromboplast Time 26.6 26.3-35.5 SEC DIAGNOSTICS / RADIOLOGY RESULTS: Exam Type: CHEST 1VW Clinical Information: CHEST PAIN Comparison: None Findings: The lungs are clear of infiltrates. The heart is normal in size. The bony and soft tissue structures of the chest are unremarkable. Impression: Clear lungs. US VENOUS DOPPLER BILATERAL HISTORY: DVT COMPARISON: None TECHNIQUE: Bilateral lower extremity venous Doppler ultrasound study was performed. FINDINGS: The common femoral, femoral, popliteal, and posterior tibial veins are visualized. Normal flow with augmentation and compressibilities are demonstrated. The greater saphenous veins are also seen and grossly patent. IMPRESSION: 1. No evidence of deep venous thrombosis is seen. PLAN NEURO: Minimize central acting medications as possible. Maintain fall precautions, adequate lighting during the day PULMONARY: Supplemental 02 as needed. Maintain aspiration precautions at all times CARDIOVASCULAR: Follow hemodynamics. Vital signs per facility protocol GI & NUTRITION: Continue with nutritional support. Continue stool softeners and laxatives as needed. KIDNEYS & ELECTROLYTES: Strict monitoring of intake, output and overall fluid balance. Avoid nephrotoxic medications to the extent possible. Medications to be dosed according to renal function. Monitor electrolytes and replace as needed ENDOCRINE: Maintain blood glucose between 100-180 at all times. Hypoglycemia protocol in place INFECTIOUS DISEASE: Trend temperature, WBC and procalcitonin level Follow cultures, deescalate antibiotics as soon as possible. Panculture if new onset fever ONCOLOGY/HEMATOLOGY/COAGULATION: Monitor for s/s of bleeding Monitor hemoglobin, coagulation studies as needed SKIN: Pressure ulcer prevention per facility protocol Specialty mattress ORTHO/REHAB: Continue PT/OT Prophylaxis: Continue GI and DVT prophylaxis Code Status: Full Resuscitation Disposition: TBD Supervising physician: ELIAS Wallis APRN Feb 11, 2025 21:59
[2025-02-11 22:10] VITALS: O2SAT 96
--- NOTE | 2025-02-11 22:10 | NUR ---
RECIEVED PATIENT FROM ER, VIA WHEELCHAIR, PT A/O X4 NO C/O PAIN, NO DISTRESS NOTED. ELIAS DOOR TO DOOR SELLING DISTRIBUTOR AT BEDSIDE.
[2025-02-11 22:13] VITALS: BP 135/65; PULSE 83; RESP 21; TEMP 97.7
[2025-02-11] MEDS: dexaMETHasone 10MG/ML 1ML VIAL 40 MG in 0.9%NACL 50ML 50 ML IV SCH (22:17)
[2025-02-11 22:30] VITALS: BP 132/63; PULSE 82; RESP 21
--- NOTE | 2025-02-11 22:30 | CONS ---
GASTROENTEROLOGY CONSULTATION NOTE Date of Consultation: Feb 11, 2025 Time of Consultation: 22:29 History of Present Illness: This is a 59-year-old female who is known to services with past medical history of gastric AVMs and GONZALO who presented due to fatigue, shortness of breath and dyspnea on exertion. She receives iron therapy outpatient. She presents with anemia once again. She is pending blood transfusion. Hemoglobin 5.7, MCV 62.3 with a platelet count of 151. EGD 08/2024 with gastric AVM, recommended to f/u in 4-6 weeks; however, lost to follow up. Review of Systems: CONSTITUTIONAL: No malaise or change in sensation of wellbeing. ENMT: No rhinorrhea, otorrhea, sinus pain, ear ache. CARDIOVASCULAR: No angina, palpitations, orthopnea or paroxysmal dyspnea. RESPIRATORY: No SOB. GASTROINTESTINAL: No abdominal pain, nausea, vomiting, diarrhea, hematemesis, melena or change in the patient's habitual bowel movements consistency/number. GENITOURINARY: No dysuria, hematuria or change in bladder continence. MUSCULOSKELETAL: No new muscle pain or decrease in muscular strength. No new joint swelling, redness or tenderness. SKIN: No new rash. Past Medical History: [ ] Past Surgical History: [ ] Past Social History: [ ] Family History: [ ] Coded Allergies: aspirin (Unverified Allergy, Unknown, 07/15/24) oxycodone (Unverified Allergy, Unknown, 07/15/24) Physical Exam: GEN: Awake, alert, oriented in person, time and place, and in no acute distress. HEENT: No sinus tenderness. Tympanic membranes were not examined. No rhinorrhea. Oral pharyngeal mucosa is pink, moist and within normal limits. Neck is supple with no cervical lymphadenopathy, thyromegaly or JVD. CHEST: Inspection, palpation and percussion of the chest were unremarkable. Lung auscultation revealed normal breath sounds bilaterally. CARDIAC: PMI is within normal limits. Heart sounds are regular. Normal S1, S2. No gallop or murmur. ABD: Soft, non-tender and not distended. No peritoneal signs on palpation. No organomegaly. Normal bowel sounds. EXT: No cyanosis or clubbing. No edema. SKIN: Intact. No rashes. JOINTS: No evidence of synovitis or acute arthritis. NEURO: Alert and oriented to name, place and person. Cranial nerve examination is unremarkable. No focal motor deficits. Normal speech. Gait is normal. Strength is normal. Vital Sign (Last 24 Hours) 02/11/25 02/11/25 21:12 21:31 Temp 98.1 Pulse 89 Resp 19 B/P (MAP) 117/42 Pulse Ox 98 O2 Delivery Room Air* O2 Flow Rate 0 FiO2 21 Laboratory: [ ] Laboratory: Test 02/11/25 22:14 02/11/25 18:06 02/11/25 11:29 02/11/25 10:40 Range/Units Whole Blood Glucose 325 H 70-110 MG/DL Prothrombin Time 10.9 9.6-11.6 SEC Prothromb Time International Ratio 1.03 0.85-1.15 Activated Partial Thromboplast Time 26.6 26.3-35.5 SEC White Blood Count 5.4 4.8-10.8 K/uL Red Blood Count 3.71 L 4.00-5.50 MIL/uL Hemoglobin 5.7 *L 12.0-16.0 g/dL Hematocrit 23.1 L 36-48 % Mean Corpuscular Volume 62.3 L 79-99 fL Mean Corpuscular Hemoglobin 15.4 L 27.0-33.0 pg Mean Corpuscular Hemoglobin Concent 24.7 L 32.0-36.0 g/dL Red Cell Distribution Width 20.8 H 11.0-15.5 % Platelet Count 151 130-400 K/uL Mean Platelet Volume 7.5-10.5 fL Immature Granulocyte % (Auto) 0.6 0-1 % Neutrophils (%) (Auto) 71.4 40.0-77.0 % Lymphocytes (%) (Auto) 17.5 L 21.0-51.0 % Monocytes (%) (Auto) 7.4 3.0-13.0 % Eosinophils (%) (Auto) 2.4 0.0-8.0 % Basophils (%) (Auto) 0.7 0.0-5.0 % Neutrophils # (Auto) 3.9 1.8-7.7 K/uL Lymphocytes # (Auto) 1.0 1.0-4.8 K/uL Monocytes # (Auto) 0.4 0.1-1.0 K/uL Eosinophils # (Auto) 0.13 0.00-0.70 K/uL Basophils # (Auto) 0.04 0.00-0.20 K/uL Absolute Immature Granulocyte (auto 0.03 0-1 K/uL Nucleated Red Blood Cells 0.4 H 0.0-0.19 % Red Blood Cell Morphology See comments Urine Color LIGHT-YELLOW YELLOW Urine Appearance CLEAR CLEAR Urine pH 6.0 5.0-8.0 Urine Specific [place] 1.020 1.001-1.031 Urine Protein NEGATIVE NEGATIVE mg/dL Urine Glucose (UA) >=1000 H NEGATIVE mg/dL Urine Ketones 5 H NEGATIVE mg/dL Urine Occult Blood NEGATIVE NEGATIVE Urine Nitrate 2+ H NEGATIVE Urine Bilirubin NEGATIVE NEGATIVE mg/dL Urine Urobilinogen 0.2 0.2-1.0 mg/dL Urine Leukocyte Esterase 75 H NEGATIVE Jojo/uL Urine RBC 0-1 0-1 /HPF Urine WBC 11-25 H 0-1 /HPF Urine Squamous Epithelial Cells RARE 0-2 /HPF Urine Bacteria Few None Seen /HPF Test 02/11/25 09:30 Range/Units Sodium Level 132 L 136-145 mmol/L Potassium Level 4.1 3.5-5.1 mmol/L Chloride Level 99 L 101-111 mmol/L Carbon Dioxide Level 28 21-32 mmol/L Blood Urea Nitrogen 10 7-18 mg/dL Creatinine 0.5 0.5-1.0 mg/dL Glomerular Filtration Rate Calc 109 >90 mL/min Random Glucose 380 H 70-105 mg/dL Total Calcium 8.8 8.5-10.1 mg/dL Iron Level 16 L 50-170 mcg/dL Total Iron Binding Capacity 514 H 250-450 mcg/dL Percent Iron Saturation 3.1 L 22-44 % Ferritin 4 L 15-150 ng/mL Total Bilirubin 1.0 0.2-1.0 mg/dL Direct Bilirubin 0.3 0.0-0.3 mg/dL Aspartate Amino Transf (AST/SGOT) 27 10-37 U/L Alanine Aminotransferase (ALT/SGPT) 29 12-78 U/L Alkaline Phosphatase 113 50-136 U/L Lactate Dehydrogenase 160 81-234 U/L Total Creatine Kinase 15 L 21-232 U/L Troponin I High Sensitivity 10 4-50 ng/L B-Type Natriuretic Peptide 30 0-100 pg/mL Total Protein 6.9 6.0-8.3 g/dL Albumin 3.4 L 3.5-5.0 g/dL Current Medications Medications (Trade) Dose Ordered Sig/Gary Route PRN Reason Start Time Stop Time Status Last Admin Dose Admin Acetaminophen (TYLenol 325MG TAB) 650 mg Q6H PRN PO MILD PAIN (1-3) 02/11/25 17:00 03/13/25 16:59 Ceftriaxone Sodium (ROCEphine 1G INJ) 1 gm Q24H IVPB 02/11/25 17:00 02/21/25 16:59 02/11/25 17:01 1 GM Dexamethasone Sodium Phosphate (dexaMETHasone 4MG/ML 1ML VIAL) 10 mg DAILY PRN IVP premedication for blood transf 02/11/25 17:00 02/11/25 19:23 DC Dexamethasone Sodium Phosphate 40 mg/Sodium Chloride 50 ml @ 100 mls/hr Q24H IV 02/11/25 20:00 03/13/25 19:59 02/11/25 22:17 100 MLS/HR Dextrose (D50w) 50 ml AD PRN IV HYPOGLYCEMIA PROTOCOL 02/11/25 17:00 03/13/25 16:59 Diphenhydramine HCl (BENAdryl INJ) 25 mg DAILY PRN IV premedications for blood trans 02/11/25 17:00 03/13/25 16:59 Folic Acid (FOLic ACID 1 MG TABLET) 1 mg DAILY PO 02/12/25 09:00 03/14/25 08:59 Glucagon (Glucagon 1mg Kit) 1 mg AD PRN IM HYPOGLYCEMIA PROTOCOL 02/11/25 17:00 03/13/25 16:59 Insulin Glargine (LANtus 100 UNITS/ML 10 ML VIAL) 30 units HS SQ 02/11/25 21:00 02/11/25 19:23 DC Insulin Human Regular (humuLIN R 100 UNIT/ML 3ML) INSULIN SLIDING SCAL... ACHS SQ 02/11/25 16:30 02/11/25 19:23 DC 02/11/25 17:03 10 UNIT Insulin Human Regular (humuLIN R 100 UNIT/ML 3ML) INSULIN SLIDING SCAL... Q4H4 SQ 02/12/25 00:00 03/14/25 00:00 Insulin Human Regular 100 unit/ Sodium Chloride 100 ml @ 0 mls/hr AD PRN IV HYPERGLYCEMIA PROTOCOL 02/11/25 20:00 03/13/25 19:59 Iron Sucrose 300 mg/Sodium Chloride 250 ml @ 83 mls/hr DAILY IV 02/11/25 19:00 02/14/25 19:00 02/11/25 19:39 83 MLS/HR Ondansetron HCl (zoFRAN 4MG INJ) 4 mg Q6H PRN IVP NAUSEA/VOMITING 02/11/25 17:00 03/13/25 16:59 Pantoprazole Sodium (PROTonix 40MG INJ) 40 mg Q12H IVP 02/11/25 16:30 03/13/25 16:29 02/11/25 17:01 40 MG Pharmacy Profile Note (Pharmacy Communication) 1 each ONCE MISC 02/11/25 19:30 02/18/25 19:29 02/11/25 19:30 1 EACH Pharmacy Profile Note (Pharmacy Communication) 1 each ONCE MISC 02/11/25 19:30 02/18/25 19:29 02/11/25 19:30 1 EACH Sodium Chloride 1,000 ml @ 50 mls/hr Q20H IV 02/11/25 17:00 03/13/25 16:59 02/11/25 22:17 50 MLS/HR Diagnostics / Radiology: [COPY/PASTE HERE IF NO REPORTS PLEASE DELETE SECTION] Assessment: [ ] Plan: Plan for EGD once transfused and hgb above 7. TIMO TERRAZAS [employer] Feb 11, 2025 22:29
[2025-02-11] MEDS: INSULIN humuLIN R 100 UNIT/ML 3ML ONE (22:35)
[2025-02-11 23:00] VITALS: BP 138/65; PULSE 83; RESP 22
[2025-02-11 23:30] VITALS: BP 121/54; PULSE 82; RESP 21
[2025-02-11 23:45] VITALS: BP 139/63; PULSE 91; RESP 22
[2025-02-12] VITALS (38 sets, daily range): BP systolic 99–148; BP diastolic 40–97; PULSE 76–96; RESP 10–47; TEMP 97.6–98.5; O2SAT 95–97
[2025-02-12] MEDS: INSULIN humuLIN R 100 UNIT/ML 3ML SQ SCH (00:49)
[2025-02-12 05:04] LABS: BASOPHILS # (AUTO) 0.03 K/uL (0.00-0.20); BASOPHILS % (AUTO) 0.4 % (0.0-5.0); EOSINOPHILS # (AUTO) 0.01 K/uL (0.00-0.70); EOSINOPHILS % (AUTO) 0.1 % (0.0-8.0); HEMATOCRIT 24.2 % (36-48); IMMATURE GRANULOCYTE ABSOLUTE 0.09 K/uL (0-1); LYMPHOCYTES # (AUTO) 0.6 K/uL (1.0-4.8); LYMPHOCYTES % (AUTO) 8.3 % (21.0-51.0); MEAN CORPUSCULAR HEMOGLOBIN 14.9 pg (27.0-33.0); MEAN CORPUSCULAR HGB CONC 24.8 g/dL (32.0-36.0); MEAN CORPUSCULAR VOLUME 60.2 fL (79-99); MONOCYTES # (AUTO) 0.1 K/uL (0.1-1.0); MONOCYTES % (AUTO) 1.3 % (3.0-13.0); NEUTROPHILS # (AUTO) 6.3 K/uL (1.8-7.7); NEUTROPHILS % (AUTO) 88.6 % (40.0-77.0); NUCLEATED RED BLOOD CELLS 0.4 % (0.0-0.19); PLATELET COUNT (AUTO) 187 K/uL (130-400); RED BLOOD CELL COUNT(AUTO) 4.02 MIL/uL (4.00-5.50); RED CELL DISTRIBUTION WIDTH 20.9 % (11.0-15.5); WHITE BLOOD COUNT (AUTO) 7.1 K/uL (4.8-10.8)
[2025-02-12 05:26] LABS: ALBUMIN 3.3 g/dL (3.5-5.0); BILIRUBIN,TOTAL 0.7 mg/dL (0.2-1.0); CREATININE 0.6 mg/dL (0.5-1.0); MAGNESIUM 1.9 mg/dL (1.80-2.40); POTASSIUM 4.6 mmol/L (3.5-5.1); TOTAL PROTEIN, SERUM 7.1 g/dL (6.0-8.3)
[2025-02-12] MEDS: FOLic ACID 1 MG TABLET PO SCH (08:51)
--- NOTE | 2025-02-12 11:59 | PN ---
[facility] PROGRESS NOTE Date of Service: Feb 12, 2025 Time of Service: 11:55 SUBJECTIVE: This is a 59-year-old female with underlying history of gastric antral vascular ectasia, history of angioectasias involving the stomach requiring endoscopy, chronic anemia with iron deficiency on outpatient IV iron infusion therapy, hypothyroidism, obesity who presented to the ER February 11, 2025 for further evaluation of fatigue, shortness of breath and dyspnea on exertion. Symptoms have been ongoing for the past and has been progressively getting worse. Patient reports having generalized debility as well. Patient reports that she has had history of chronic anemia and has previously needed blood transfusion. Her hemoglobin usually runs close to 8-10. She is followed by Dr. Slaughter with Hematology as outpatient and is on outpatient IV iron therapy. Her last dose of IV iron infusion therapy was in October this year. Last time, patient needed blood transfusion was about 3-4 years ago. Patient has had previous endoscopy with most recent being in 08/2024 at [facility] where patient was found to have angioectasias involving the stomach requiring argon plasma coagulation. Patient was also found to have LA grade a reflux esophagitis and chronic gastritis. Patient denied noticing overt signs of GI bleeding and denies any melena, hematochezia, or hematemesis. She denied previous history of LA or cardiac comorbidities. On presentation to the hospital, patient was noted to be afebrile with T-max of 98.1 F, blood pressure of 123/46, and heart rate of 76. Labs on presentation showed WBC count of 5400, hemoglobin 5.7, MCV of 62, platelet count of 489866. BMP remarkable for corrected sodium of 136, potassium 4.1, creatinine 0.5, blood glucose of 380. Patient admitted for management of severe anemia with iron deficiency in the setting of chronic angioectasias in the stomach with concerns for chronic GI bleeding. Patient noted to have multiple antibodies on type and screen with a positive Ritchie test 02/12 patient is seen and examined at bedside, case discussed with the RN, patient on dexamethasone and iron IV, alert oriented x3, hemodynamically stable, afebrile, hemoglobin today 6.0. REVIEW OF SYSTEMS CONSTITUTIONAL: Denies fevers, chills, or night sweats. No unintentional weight loss reported. NEUROLOGICAL: Denies headache, amaurosis fugax, motor weakness, sensory deficit, vertigo/spinning sensation, gait abnormalities, or tremors. ENT: No hearing loss, otalgia, otorrhea, rhinitis, rhinorrhea, hoarseness, or sore throat. CARDIOVASCULAR: Denies any exertional angina, dyspnea on exertion, orthopnea, paroxysmal nocturnal dyspnea, palpitations, life-threatening arrhythmias, claudication. PULMONARY: Denies any shortness of breath, cough, phlegm/sputum, hemoptysis, pleuritic chest pain. SLEEP: Denies morning headaches, daytime somnolence or napping. Denies difficulty falling asleep, staying asleep, waking from sleep. Denies knowledge of snoring. GASTROINTESTINAL: Denies any type of dysphagia to either liquids or solids. Denies nausea, vomiting, pyrosis, early satiety, abdominal pain, diarrhea, constipation, or changes in stool consistency or caliber. Denies coffee-ground emesis, hematemesis, hematochezia, or melanotic stools. GENITOURINARY: Denies frequency, urgency, nocturia, hematuria or incontinence (Storage/Irritative symptoms.) Low urinary stream, straining to void, urinary intermittency or hesitancy, splitting of the voiding stream, terminal dribbling. ENDOCRINOLOGIC: Denies polyuria, polydipsia, polyphagia or heat/cold intolerances. HEMATOLOGIC: Anemia, shortness of breath, dyspnea on exertion, fatigue ONCOLOGIC: Denies personal history of malignancy. DERMATOLOGIC: Denies rashes or pruritus. PSYCHIATRIC: Denies any suicidal or homicidal ideation. Denies hallucinations. PHYSICAL EXAM GENERAL APPEARANCE: The patient is awake, alert, and oriented, in no acute cardiopulmonary distress. Patient is obese and appears pale NEUROLOGICAL: Cranial nerves II-XII grossly intact. Motor is 5/5 in bilateral upper and lower extremities proximal to distal. No sensory deficits. HEENT: Face is symmetric. Pupils are equal and reactive. Extraocular movements are intact. NECK: Supple. No JVD. No thyromegaly. No submental, submandibular, pre- /postauricular, occipital or supraclavicular lymphadenopathy. CHEST: Normal chest expansion. No Telemetry. LUNGS: Absence of any rales, rhonchi or any wheezing. CARDIOVASCULAR: Regular. S1 and S2 normal. No appreciable rubs, murmurs or gallops. ABDOMEN: Soft, nontender, and nondistended. There is no rebound, voluntary guarding, or rigidity. : Deferred. No Pino. EXTREMITIES: Non-edematous and not cyanotic. No clubbing. Good capillary refill. SKIN: No skin breakdown. Vital Signs (last 8hr) Date Time Temp Pulse Resp B/P (MAP) Pulse Ox O2 Delivery O2 Flow Rate FiO2 02/12/25 11:47 97 Room Air* 0 21 02/12/25 11:00 98.1 82 18 139/61 97 Room Air 02/12/25 10:00 82 22 134/63 98 Room Air 21 02/12/25 09:00 83 21 137/67 95 Room Air 21 02/12/25 08:00 79 16 137/63 92 Room Air 02/12/25 07:50 95 Room Air* 0 21 02/12/25 07:00 97.5 81 20 126/52 95 Room Air 02/12/25 04:00 98.1 77 18 141/70 94 Room Air 02/12/25 04:00 96 Room Air* 0 21 LABS: Laboratory: Test 02/12/25 11:44 02/12/25 04:42 02/11/25 18:06 02/11/25 11:29 Range/Units Whole Blood Glucose 245 H 70-110 MG/DL White Blood Count 7.1 # 4.8-10.8 K/uL Red Blood Count 4.02 4.00-5.50 MIL/uL Hemoglobin 6.0 *L 12.0-16.0 g/dL Hematocrit 24.2 L 36-48 % Mean Corpuscular Volume 60.2 L 79-99 fL Mean Corpuscular Hemoglobin 14.9 L 27.0-33.0 pg Mean Corpuscular Hemoglobin Concent 24.8 L 32.0-36.0 g/dL Red Cell Distribution Width 20.9 H 11.0-15.5 % Platelet Count 187 130-400 K/uL Mean Platelet Volume 7.5-10.5 fL Immature Granulocyte % (Auto) 1.3 H 0-1 % Neutrophils (%) (Auto) 88.6 H 40.0-77.0 % Lymphocytes (%) (Auto) 8.3 L 21.0-51.0 % Monocytes (%) (Auto) 1.3 L 3.0-13.0 % Eosinophils (%) (Auto) 0.1 0.0-8.0 % Basophils (%) (Auto) 0.4 0.0-5.0 % Neutrophils # (Auto) 6.3 1.8-7.7 K/uL Lymphocytes # (Auto) 0.6 L 1.0-4.8 K/uL Monocytes # (Auto) 0.1 0.1-1.0 K/uL Eosinophils # (Auto) 0.01 0.00-0.70 K/uL Basophils # (Auto) 0.03 0.00-0.20 K/uL Absolute Immature Granulocyte (auto 0.09 0-1 K/uL Nucleated Red Blood Cells 0.4 H 0.0-0.19 % White Cell Morphology Comment See comments Sodium Level 134 L 136-145 mmol/L Potassium Level 4.6 3.5-5.1 mmol/L Chloride Level 102 101-111 mmol/L Carbon Dioxide Level 25 21-32 mmol/L Blood Urea Nitrogen 8 7-18 mg/dL Creatinine 0.6 0.5-1.0 mg/dL Glomerular Filtration Rate Calc 104 >90 mL/min Random Glucose 341 H 70-105 mg/dL Total Calcium 8.7 8.5-10.1 mg/dL Magnesium Level 1.90 1.80-2.40 mg/dL Total Bilirubin 0.7 # 0.2-1.0 mg/dL Aspartate Amino Transf (AST/SGOT) 26 10-37 U/L Alanine Aminotransferase (ALT/SGPT) 26 12-78 U/L Alkaline Phosphatase 100 50-136 U/L Total Protein 7.1 6.0-8.3 g/dL Albumin 3.3 L 3.5-5.0 g/dL Prothrombin Time 10.9 9.6-11.6 SEC Prothromb Time International Ratio 1.03 0.85-1.15 Activated Partial Thromboplast Time 26.6 26.3-35.5 SEC Red Blood Cell Morphology See comments Test 02/11/25 10:40 02/11/25 09:30 Range/Units Urine Color LIGHT-YELLOW YELLOW Urine Appearance CLEAR CLEAR Urine pH 6.0 5.0-8.0 Urine Specific [place] 1.020 1.001-1.031 Urine Protein NEGATIVE NEGATIVE mg/dL Urine Glucose (UA) >=1000 H NEGATIVE mg/dL Urine Ketones 5 H NEGATIVE mg/dL Urine Occult Blood NEGATIVE NEGATIVE Urine Nitrate 2+ H NEGATIVE Urine Bilirubin NEGATIVE NEGATIVE mg/dL Urine Urobilinogen 0.2 0.2-1.0 mg/dL Urine Leukocyte Esterase 75 H NEGATIVE Jojo/uL Urine RBC 0-1 0-1 /HPF Urine WBC 11-25 H 0-1 /HPF Urine Squamous Epithelial Cells RARE 0-2 /HPF Urine Bacteria Few None Seen /HPF Iron Level 16 L 50-170 mcg/dL Total Iron Binding Capacity 514 H 250-450 mcg/dL Percent Iron Saturation 3.1 L 22-44 % Ferritin 4 L 15-150 ng/mL Direct Bilirubin 0.3 0.0-0.3 mg/dL Lactate Dehydrogenase 160 81-234 U/L Total Creatine Kinase 15 L 21-232 U/L Troponin I High Sensitivity 10 4-50 ng/L B-Type Natriuretic Peptide 30 0-100 pg/mL Current Medications Medications (Trade) Dose Ordered Sig/Gary Route PRN Reason Start Time Stop Time Status Last Admin Dose Admin Acetaminophen (TYLenol 325MG TAB) 650 mg Q6H PRN PO MILD PAIN (1-3) 02/11/25 17:00 03/13/25 16:59 Ceftriaxone Sodium (ROCEphine 1G INJ) 1 gm Q24H IVPB 02/11/25 17:00 02/21/25 16:59 02/11/25 17:01 1 GM Dexamethasone Sodium Phosphate (dexaMETHasone 4MG/ML 1ML VIAL) 10 mg DAILY PRN IVP premedication for blood transf 02/11/25 17:00 02/11/25 19:23 DC Dexamethasone Sodium Phosphate 40 mg/Sodium Chloride 50 ml @ 100 mls/hr Q24H IV 02/11/25 20:00 03/13/25 19:59 02/11/25 22:17 100 MLS/HR Dextrose (D50w) 50 ml AD PRN IV HYPOGLYCEMIA PROTOCOL 02/11/25 17:00 03/13/25 16:59 Diphenhydramine HCl (BENAdryl INJ) 25 mg DAILY PRN IV premedications for blood trans 02/11/25 17:00 03/13/25 16:59 Folic Acid (FOLic ACID 1 MG TABLET) 1 mg DAILY PO 02/12/25 09:00 03/14/25 08:59 02/12/25 08:51 1 MG Glucagon (Glucagon 1mg Kit) 1 mg AD PRN IM HYPOGLYCEMIA PROTOCOL 02/11/25 17:00 03/13/25 16:59 Insulin Glargine (LANtus 100 UNITS/ML 10 ML VIAL) 30 units HS SQ 02/11/25 21:00 02/11/25 19:23 DC Insulin Human Regular (humuLIN R 100 UNIT/ML 3ML) INSULIN SLIDING SCAL... ACHS SQ 02/11/25 16:30 02/11/25 19:23 DC 02/11/25 17:03 10 UNIT Insulin Human Regular (humuLIN R 100 UNIT/ML 3ML) INSULIN SLIDING SCAL... Q4H4 SQ 02/12/25 00:00 03/14/25 00:00 02/12/25 11:52 10 UNIT Insulin Human Regular 100 unit/ Sodium Chloride 100 ml @ 0 mls/hr AD PRN IV HYPERGLYCEMIA PROTOCOL 02/11/25 20:00 03/13/25 19:59 Iron Sucrose 300 mg/Sodium Chloride 250 ml @ 83 mls/hr DAILY IV 02/11/25 19:00 02/13/25 12:01 02/12/25 08:50 83 MLS/HR Ondansetron HCl (zoFRAN 4MG INJ) 4 mg Q6H PRN IVP NAUSEA/VOMITING 02/11/25 17:00 03/13/25 16:59 Pantoprazole Sodium (PROTonix 40MG INJ) 40 mg Q12H IVP 02/11/25 16:30 03/13/25 16:29 02/12/25 06:00 40 MG Pharmacy Profile Note (Pharmacy Communication) 1 each ONCE MISC 02/11/25 19:30 02/12/25 08:35 DC 02/11/25 19:30 1 EACH Pharmacy Profile Note (Pharmacy Communication) 1 each ONCE MISC 02/11/25 19:30 02/12/25 08:35 DC 02/11/25 19:30 1 EACH Sodium Chloride 1,000 ml @ 50 mls/hr Q20H IV 02/11/25 17:00 03/13/25 16:59 02/11/25 22:17 50 MLS/HR DIAGNOSTICS / RADIOLOGY: [ ] ASSESSMENT: Severe symptomatic acute on chronic anemia, POA Severe iron deficiency anemia, POA History of chronic gastric vascular angiectasia of the stomach, POA History of suspected chronic upper GI bleed, POA Mild UTI, POA Uncontrolled hyperglycemia, POA History of type 2 diabetes mellitus, POA Morbid obesity, POA Hypertension, POA Hypothyroidism, POA History of anemia requiring prior blood transfusions, POA PLAN: Patient remains admitted to the ICU Continue with Venofer IV Continue with dexamethasone IV GI input noted and appreciated, plan for EGD once transfused and hemoglobin above seven Continue to follow Hematology input and recommendation Critical care input noted and appreciated Results of urine culture greater than [id number] CFU, identification pending. Continue Rocephin 1 g IV daily NEURO: Minimize central acting medications as possible. Fall Precautions. Well lighted room through the day and minimize interruptions through the night to prevent acute delirium. PULMONARY: Supplemental 02 as needed BiPAP as necessary, for respiratory distress Titrate Fio2 to keep Spo2 > or = 90% DuoNebs and CPT as needed IS hourly while awake for pulmonary hygiene prn Out of bed to chair as tolerated Maintain aspiration precautions at all times CARDIOVASCULAR: Follow hemodynamics. Vital signs per facility protocol GI & NUTRITION: Continue nutritional support Aspirations precautions Prokinetic agents and laxatives as needed KIDNEYS & ELECTROLYTES: Strict monitoring of intake and output Daily weights Avoid nephrotoxic agents Monitor electrolytes and replace as needed Goal urine output of 30mL/hr or 0.5mL/kg/hr Medications to be dosed according to renal function. Avoid contrast if possible ENDOCRINE: Maintain blood glucose between 100-180 at all times. Insulin sliding scale for blood glucose management Hypoglycemia and hyperglycemia protocol in place INFECTIOUS DISEASE: Trend temperature, WBC and procalcitonin level Follow cultures, deescalate antibiotics as soon as possible. Panculture if new onset fever HEMATOLOGY & COAGULATION: Monitor H&H. Keep Hgb > 7 Transfuse 1 unit of PRBC for Hgb < 7 Transfuse 1 pack of platelets of platelets < 20, 000 Watch for any signs and symptoms of bleeding SKIN: Pressure ulcer prevention per facility protocol Specialty mattress as needed ORTHO/REHAB Continue PT/OT PRN: MEDICATIONS Tylenol 650 mg po every 4 hrs for fever zofran 4 mg IV every 6 hrs for n/v Hydralazine 5 mg IV every 4 hrs systolic pressure > 160 bowel regiment: lactulose 20 gm PO BID PRN constipation Supportive measures: Continue GI and DVT prophylaxis Disposition: Pending improvement in clinical condition All questions answered time spent: > 35 min CHRISTEL BANEGAS MD Feb 12, 2025 11:59
[2025-02-12] MEDS ORDERED: COMPOUND IV MISC 1 EACH IVSOLN MISC PRN (12:00)
--- NOTE | 2025-02-12 13:04 | PN ---
[facility] PROGRESS NOTE Date Patient Seen: Feb 12, 2025 Time of Visit: 13:04 Supervising Physician: [ ] Consulting Physician: Dr. 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, POA DM type 2, with hyperglycemia, poorly controlled, POA Class three obesity, BMI of 44.9, POA Acute cystitis, POA PLAN: Continue ICU care Continue cardiac monitoring H&H q.6 Continue blood glucose check q.4, initiate insulin drip if persistently as elevated sugar above 350 Complete bedrest for now NPO for now Bilateral SCDs Replete electrolyte accordingly Monitor temperature curve Antibiotic management per primary Rest of plan care of primary and Hematology Safety precautions Keep head of bed above 30 Incentive spirometry DuoNeb q.6 as needed for shortness of breaths CBC, CMP, magnesium level daily INTERVAL HISTORY: [ ] REVIEW OF SYSTEMS: 12 point ROS reviewed with patient. Pertinent positives mentioned above. Otherwise negative. PHYSICAL EXAM: GENERAL: alert, weak, awake oriented x 3 HEENT: EOMI, Sclera non icteric, moist mucosa NECK: Supple, no JVD, trachea midline LUNGS: Clear breath sounds bilaterally. No wheezes HEART: Regular rate and rhythm. Normal S1 and S2, without murmurs ABD: Large body habitus EXT: No clubbing cyanosis or edema NEURO: Alert and oriented to person, follows commands Vital Signs (last 8hr) Date Time Temp Pulse Resp B/P (MAP) Pulse Ox O2 Delivery O2 Flow Rate FiO2 02/12/25 11:47 97 Room Air* 0 21 02/12/25 11:00 98.1 82 18 139/61 97 Room Air 21 02/12/25 10:00 82 22 134/63 98 Room Air 21 02/12/25 09:00 83 21 137/67 95 Room Air 21 02/12/25 08:00 79 16 137/63 92 Room Air 21 02/12/25 07:50 95 Room Air* 0 21 02/12/25 07:00 97.5 81 20 126/52 95 Room Air 21 LABS: Hematology Labs: Test 02/12/25 04:42 02/11/25 11:29 Range/Units White Blood Count 7.1 # 4.8-10.8 K/uL Red Blood Count 4.02 4.00-5.50 MIL/uL Hemoglobin 6.0 *L 12.0-16.0 g/dL Hematocrit 24.2 L 36-48 % Mean Corpuscular Volume 60.2 L 79-99 fL Mean Corpuscular Hemoglobin 14.9 L 27.0-33.0 pg Mean Corpuscular Hemoglobin Concent 24.8 L 32.0-36.0 g/dL Red Cell Distribution Width 20.9 H 11.0-15.5 % Platelet Count 187 130-400 K/uL Mean Platelet Volume 7.5-10.5 fL Immature Granulocyte % (Auto) 1.3 H 0-1 % Neutrophils (%) (Auto) 88.6 H 40.0-77.0 % Lymphocytes (%) (Auto) 8.3 L 21.0-51.0 % Monocytes (%) (Auto) 1.3 L 3.0-13.0 % Eosinophils (%) (Auto) 0.1 0.0-8.0 % Basophils (%) (Auto) 0.4 0.0-5.0 % Neutrophils # (Auto) 6.3 1.8-7.7 K/uL Lymphocytes # (Auto) 0.6 L 1.0-4.8 K/uL Monocytes # (Auto) 0.1 0.1-1.0 K/uL Eosinophils # (Auto) 0.01 0.00-0.70 K/uL Basophils # (Auto) 0.03 0.00-0.20 K/uL Absolute Immature Granulocyte (auto 0.09 0-1 K/uL Nucleated Red Blood Cells 0.4 H 0.0-0.19 % White Cell Morphology Comment See comments Red Blood Cell Morphology See comments Chemistry Labs: Test 02/12/25 11:44 02/12/25 04:42 02/11/25 09:30 Range/Units Whole Blood Glucose 245 H 70-110 MG/DL Sodium Level 134 L 136-145 mmol/L Potassium Level 4.6 3.5-5.1 mmol/L Chloride Level 102 101-111 mmol/L Carbon Dioxide Level 25 21-32 mmol/L Blood Urea Nitrogen 8 7-18 mg/dL Creatinine 0.6 0.5-1.0 mg/dL Glomerular Filtration Rate Calc 104 >90 mL/min Random Glucose 341 H 70-105 mg/dL Total Calcium 8.7 8.5-10.1 mg/dL Magnesium Level 1.90 1.80-2.40 mg/dL Total Bilirubin 0.7 # 0.2-1.0 mg/dL Aspartate Amino Transf (AST/SGOT) 26 10-37 U/L Alanine Aminotransferase (ALT/SGPT) 26 12-78 U/L Alkaline Phosphatase 100 50-136 U/L Total Protein 7.1 6.0-8.3 g/dL Albumin 3.3 L 3.5-5.0 g/dL Iron Level 16 L 50-170 mcg/dL Total Iron Binding Capacity 514 H 250-450 mcg/dL Percent Iron Saturation 3.1 L 22-44 % Ferritin 4 L 15-150 ng/mL Direct Bilirubin 0.3 0.0-0.3 mg/dL Lactate Dehydrogenase 160 81-234 U/L Total Creatine Kinase 15 L 21-232 U/L Troponin I High Sensitivity 10 4-50 ng/L B-Type Natriuretic Peptide 30 0-100 pg/mL Coagulation Labs: Test 02/11/25 18:06 Range/Units Prothrombin Time 10.9 9.6-11.6 SEC Prothromb Time International Ratio 1.03 0.85-1.15 Activated Partial Thromboplast Time 26.6 26.3-35.5 SEC DIAGNOSTICS / RADIOLOGY RESULTS: [ ] PLAN NEURO: Minimize central acting medications as possible. Maintain fall precautions, adequate lighting during the day PULMONARY: Supplemental 02 as needed. Maintain aspiration precautions at all times CARDIOVASCULAR: Follow hemodynamics. Vital signs per facility protocol GI & NUTRITION: Continue with nutritional support. Continue stool softeners and laxatives as needed. KIDNEYS & ELECTROLYTES: Strict monitoring of intake, output and overall fluid balance. Avoid nephrotoxic medications to the extent possible. Medications to be dosed according to renal function. Monitor electrolytes and replace as needed ENDOCRINE: Maintain blood glucose between 100-180 at all times. Hypoglycemia protocol in place INFECTIOUS DISEASE: Trend temperature, WBC and procalcitonin level Follow cultures, deescalate antibiotics as soon as possible. Panculture if new onset fever ONCOLOGY/HEMATOLOGY/COAGULATION: Monitor for s/s of bleeding Monitor hemoglobin, coagulation studies as needed SKIN: Pressure ulcer prevention per facility protocol Specialty mattress ORTHO/REHAB: Continue PT/OT Prophylaxis: Continue GI and DVT prophylaxis Code Status: Full Resuscitation Disposition: TBD CARLOS LOPEZ NP Feb 12, 2025 13:04
--- NOTE | 2025-02-12 13:24 | NUR ---
COLEEN GALLEGOS MADE AWARE OF DR WALKER REQUESTING FOR PATIENT TO BE SCOPED (EGD/COLONOSCOPY)
[2025-02-12 13:30] LABS: HEMATOCRIT 25.4 % (36-48)
--- NOTE | 2025-02-12 13:49 | NUR ---
[facility] ICU Skin Assessment: Patient assessed by wound healing team. Patient with no wounds or skin breakdown noted. Assessment and recommendations provided to primary nurse. Education provided. Addendum: 02/12/25 at 1350 by JOSE MARTIN VALERA RN RN/ Amended: Links added.
--- NOTE | 2025-02-12 13:50 | PN ---
GASTROENTEROLOGY PROGRESS NOTE Date of Visit: Feb 12, 2025 Time of Visit: 13:50 Events / Notes: No acute events overnight. Hgb trending up. Hematology following. Review of Systems: CONSTITUTIONAL: No malaise or change in sensation of wellbeing. ENMT: No rhinorrhea, otorrhea, sinus pain, ear ache. CARDIOVASCULAR: No angina, palpitations, orthopnea or paroxysmal dyspnea. RESPIRATORY: No SOB. GASTROINTESTINAL: No abdominal pain, nausea, vomiting, diarrhea, hematemesis, melena or change in the patient's habitual bowel movements consistency/number. GENITOURINARY: No dysuria, hematuria or change in bladder continence. MUSCULOSKELETAL: No new muscle pain or decrease in muscular strength. No new joint swelling, redness or tenderness. SKIN: No new rash. Physical Exam: GEN: Awake, alert, oriented in person, time and place, and in no acute distress. HEENT: No sinus tenderness. Tympanic membranes were not examined. No rhinorrhea. Oral pharyngeal mucosa is pink, moist and within normal limits. Neck is supple with no cervical lymphadenopathy, thyromegaly or JVD. CHEST: Inspection, palpation and percussion of the chest were unremarkable. Lung auscultation revealed normal breath sounds bilaterally. CARDIAC: PMI is within normal limits. Heart sounds are regular. Normal S1, S2. No gallop or murmur. ABD: Soft, non-tender and not distended. No peritoneal signs on palpation. No organomegaly. Normal bowel sounds. EXT: No cyanosis or clubbing. No edema. SKIN: Intact. No rashes. JOINTS: No evidence of synovitis or acute arthritis. NEURO: Alert and oriented to name, place and person. Cranial nerve examination is unremarkable. No focal motor deficits. Normal speech. Gait is normal. Strength is normal. Vital Signs (last 8hr) Date Time Temp Pulse Resp B/P (MAP) Pulse Ox O2 Delivery O2 Flow Rate FiO2 02/12/25 13:00 84 30 123/61 96 Room Air 02/12/25 12:00 96 17 129/71 96 Room Air 02/12/25 11:47 97 Room Air* 0 02/12/25 11:00 98.1 82 18 139/61 97 Room Air 02/12/25 10:00 82 22 134/63 98 Room Air 02/12/25 09:00 83 21 137/67 95 Room Air 02/12/25 08:00 79 16 137/63 92 Room Air 21 02/12/25 07:50 95 Room Air* 0 21 02/12/25 07:00 97.5 81 20 126/52 95 Room Air 21 Laboratory: [ ] Laboratory: Test 02/12/25 13:23 02/12/25 11:44 02/12/25 04:42 02/11/25 18:06 Range/Units Hemoglobin 6.2 *L 12.0-16.0 g/dL Hematocrit 25.4 L 36-48 % Whole Blood Glucose 245 H 70-110 MG/DL White Blood Count 7.1 # 4.8-10.8 K/uL Red Blood Count 4.02 4.00-5.50 MIL/uL Mean Corpuscular Volume 60.2 L 79-99 fL Mean Corpuscular Hemoglobin 14.9 L 27.0-33.0 pg Mean Corpuscular Hemoglobin Concent 24.8 L 32.0-36.0 g/dL Red Cell Distribution Width 20.9 H 11.0-15.5 % Platelet Count 187 130-400 K/uL Mean Platelet Volume 7.5-10.5 fL Immature Granulocyte % (Auto) 1.3 H 0-1 % Neutrophils (%) (Auto) 88.6 H 40.0-77.0 % Lymphocytes (%) (Auto) 8.3 L 21.0-51.0 % Monocytes (%) (Auto) 1.3 L 3.0-13.0 % Eosinophils (%) (Auto) 0.1 0.0-8.0 % Basophils (%) (Auto) 0.4 0.0-5.0 % Neutrophils # (Auto) 6.3 1.8-7.7 K/uL Lymphocytes # (Auto) 0.6 L 1.0-4.8 K/uL Monocytes # (Auto) 0.1 0.1-1.0 K/uL Eosinophils # (Auto) 0.01 0.00-0.70 K/uL Basophils # (Auto) 0.03 0.00-0.20 K/uL Absolute Immature Granulocyte (auto 0.09 0-1 K/uL Nucleated Red Blood Cells 0.4 H 0.0-0.19 % White Cell Morphology Comment See comments Sodium Level 134 L 136-145 mmol/L Potassium Level 4.6 3.5-5.1 mmol/L Chloride Level 102 101-111 mmol/L Carbon Dioxide Level 25 21-32 mmol/L Blood Urea Nitrogen 8 7-18 mg/dL Creatinine 0.6 0.5-1.0 mg/dL Glomerular Filtration Rate Calc 104 >90 mL/min Random Glucose 341 H 70-105 mg/dL Total Calcium 8.7 8.5-10.1 mg/dL Magnesium Level 1.90 1.80-2.40 mg/dL Total Bilirubin 0.7 # 0.2-1.0 mg/dL Aspartate Amino Transf (AST/SGOT) 26 10-37 U/L Alanine Aminotransferase (ALT/SGPT) 26 12-78 U/L Alkaline Phosphatase 100 50-136 U/L Total Protein 7.1 6.0-8.3 g/dL Albumin 3.3 L 3.5-5.0 g/dL Prothrombin Time 10.9 9.6-11.6 SEC Prothromb Time International Ratio 1.03 0.85-1.15 Activated Partial Thromboplast Time 26.6 26.3-35.5 SEC Test 02/11/25 11:29 02/11/25 10:40 02/11/25 09:30 Range/Units Red Blood Cell Morphology See comments Urine Color LIGHT-YELLOW YELLOW Urine Appearance CLEAR CLEAR Urine pH 6.0 5.0-8.0 Urine Specific [place] 1.020 1.001-1.031 Urine Protein NEGATIVE NEGATIVE mg/dL Urine Glucose (UA) >=1000 H NEGATIVE mg/dL Urine Ketones 5 H NEGATIVE mg/dL Urine Occult Blood NEGATIVE NEGATIVE Urine Nitrate 2+ H NEGATIVE Urine Bilirubin NEGATIVE NEGATIVE mg/dL Urine Urobilinogen 0.2 0.2-1.0 mg/dL Urine Leukocyte Esterase 75 H NEGATIVE Jojo/uL Urine RBC 0-1 0-1 /HPF Urine WBC 11-25 H 0-1 /HPF Urine Squamous Epithelial Cells RARE 0-2 /HPF Urine Bacteria Few None Seen /HPF Iron Level 16 L 50-170 mcg/dL Total Iron Binding Capacity 514 H 250-450 mcg/dL Percent Iron Saturation 3.1 L 22-44 % Ferritin 4 L 15-150 ng/mL Direct Bilirubin 0.3 0.0-0.3 mg/dL Lactate Dehydrogenase 160 81-234 U/L Total Creatine Kinase 15 L 21-232 U/L Troponin I High Sensitivity 10 4-50 ng/L B-Type Natriuretic Peptide 30 0-100 pg/mL Current Medications Medications (Trade) Dose Ordered Sig/Gary Route PRN Reason Start Time Stop Time Status Last Admin Dose Admin Acetaminophen (TYLenol 325MG TAB) 650 mg Q6H PRN PO MILD PAIN (1-3) 02/11/25 17:00 03/13/25 16:59 Ceftriaxone Sodium (ROCEphine 1G INJ) 1 gm Q24H IVPB 02/11/25 17:00 02/21/25 16:59 02/11/25 17:01 1 GM Dexamethasone Sodium Phosphate (dexaMETHasone 4MG/ML 1ML VIAL) 10 mg DAILY PRN IVP premedication for blood transf 02/11/25 17:00 02/11/25 19:23 DC Dexamethasone Sodium Phosphate 40 mg/Sodium Chloride 50 ml @ 100 mls/hr Q24H IV 02/11/25 20:00 03/13/25 19:59 02/11/25 22:17 100 MLS/HR Dextrose (D50w) 50 ml AD PRN IV HYPOGLYCEMIA PROTOCOL 02/11/25 17:00 03/13/25 16:59 Diphenhydramine HCl (BENAdryl INJ) 25 mg DAILY PRN IV premedications for blood trans 02/11/25 17:00 03/13/25 16:59 Folic Acid (FOLic ACID 1 MG TABLET) 1 mg DAILY PO 02/12/25 09:00 03/14/25 08:59 02/12/25 08:51 1 MG Glucagon (Glucagon 1mg Kit) 1 mg AD PRN IM HYPOGLYCEMIA PROTOCOL 02/11/25 17:00 03/13/25 16:59 Insulin Glargine (LANtus 100 UNITS/ML 10 ML VIAL) 30 units HS SQ 02/11/25 21:00 02/11/25 19:23 DC Insulin Human Regular (humuLIN R 100 UNIT/ML 3ML) INSULIN SLIDING SCAL... ACHS SQ 02/11/25 16:30 02/11/25 19:23 DC 02/11/25 17:03 10 UNIT Insulin Human Regular (humuLIN R 100 UNIT/ML 3ML) INSULIN SLIDING SCAL... Q4H4 SQ 02/12/25 00:00 03/14/25 00:00 02/12/25 11:52 10 UNIT Insulin Human Regular 100 unit/ Sodium Chloride 100 ml @ 0 mls/hr AD PRN IV HYPERGLYCEMIA PROTOCOL 02/11/25 20:00 03/13/25 19:59 Iron Sucrose 300 mg/Sodium Chloride 250 ml @ 83 mls/hr DAILY IV 02/11/25 19:00 02/13/25 12:01 02/12/25 08:50 83 MLS/HR Ondansetron HCl (zoFRAN 4MG INJ) 4 mg Q6H PRN IVP NAUSEA/VOMITING 02/11/25 17:00 03/13/25 16:59 Pantoprazole Sodium (PROTonix 40MG INJ) 40 mg Q12H IVP 02/11/25 16:30 03/13/25 16:29 02/12/25 06:00 40 MG Pharmacy Profile Note (Pharmacy Communication) 1 each ONCE MISC 02/11/25 19:30 02/12/25 08:35 DC 02/11/25 19:30 1 EACH Pharmacy Profile Note (Pharmacy Communication) 1 each ONCE MISC 02/11/25 19:30 02/12/25 08:35 DC 02/11/25 19:30 1 EACH Sodium Chloride 1,000 ml @ 50 mls/hr Q20H IV 02/11/25 17:00 03/13/25 16:59 02/11/25 22:17 50 MLS/HR Vitamin B Complex (Vitamin B-12) 1,000 mcg DAILY PO 02/13/25 09:00 03/15/25 08:59 Diagnostics / Radiology: [COPY/PASTE HERE IF NO REPORTS PLEASE DELETE SECTION] Assessment: Hx gastric avm Plan: EGD in [facility] Feb 12, 2025 13:50
--- NOTE | 2025-02-12 15:00 | NUR ---
MET W PT AT BEDSIDE FOR DC PLANNING PATIENT INDEPENDENT, EMPLOYED, DRIVES, NO SERVICES; RECENTLY- IN THE PAST YEAR MOVED- DOWN FROM [place] AND LIVES WITH SISTER CAMILO KIMBALL, EMPLOYED AT [employer] [place] [employer]. HAS HAD HEALTH PROBLEM IN THE PAST WITH LARGE MEDICAL BILLS AND DESCRIBES FINANCIAL STRAIN. ACTIVE LISTENING/EMOTIONAL SUPPORT OFFERED. ON DISCHARGE SISTER WILL PROVIDE TRANSPORT. DC PLAN IS HOME, CURRENTLY A PATIENT OF DR. MCRAE AND WILL FOLLOW UP WITH HIM Addendum: 02/12/25 at 4698 by CINTHIA THOMAS RN CM Amended: Links added.
--- NOTE | 2025-02-12 15:16 | HP ---
ADMISSION CC: Autoimmune hemolytic anemia HPI: The patient is a 59-year-old female with underlying history of gastric antral vascular ectasia, history of angioectasias involving the stomach requiring end oscopy, chronic anemia with iron deficiency on outpatient IV iron infusion therapy, hypothyroidism, and obesity who presented to the emergency department for evaluation of fatigue, shortness of breath and dyspnea on exertion. Symptoms have been ongoing for the past and has been progressively getting worse. Patient reports having a history of chronic anemia, and has previously needed blood transfusion. She is followed closely by medical transcriptionist Dr. Slaughter and is on outpatient IV iron therapy. Patient denies noticing overt signs of GI bleeding and denies any melena, hematochezia, or hematemesis. On presentation to the hospital, patient was noted to be afebrile with T-max of 98.1 F, blood pressure of 123/46, and heart rate of 76. Labs on presentation to the emergency department showed WBC count of 5400, hemoglobin 5.7, MCV of 62, platelet count of [id number]. BMP was remarkable for corrected sodium of 136, potassium 4.1, creatinine 0.5, blood glucose of 380.Patient was admitted for management of severe anemia with iron deficiency in the setting of chronic angioectasias in the stomach with concerns for chronic GI bleeding. Patient was noted to have multiple antibodies on type and screen. Ritchie test was done, and was positive. Hematology was consulted for autoimmune hemolytic anemia. HISTORY PHM: Gastric vascular angiectasia, chronic anemia, iron deficiency anemia requiring IV iron therapy as outpatient, obesity, hypothyroidism, type 2 diabetes mellitus PSH: Multiple upper endoscopies previously, Appendectomy, Left oophorectomy SH: Currently denies active smoking or alcohol consumption FH: Noncontributory ALLERGIES: Coded Allergies: aspirin (Unverified Allergy, Unknown, 07/15/24) oxycodone (Unverified Allergy, Unknown, 07/15/24) REVIEW OF SYSTEMS CONSTITUTIONAL: No FEVER, No SWEATS, No CHILLS, No WEIGHT LOSS HEENT: No JAUNDICE, No SORE THROAT, No SINUS PRESSURE, No VISION CHANGES RESPIRATORY: No COUGH, No CHEST PAIN, No SHORTNESS OF BREATH, No HEMOPTYSIS CARDIOVASCULAR: No PALPATIONS, No DYSPNEA ON EXERTION, No SYNCOPE GASTROINTESTINAL: No NAUSEA, No VOMITING, No DIARRHEA, No DYSPHAGIA, No CONSTIPATION, No ABDOMINAL PAIN, No HEMATEMESIS, No HEMATOCHEZIA, No MELENA GENITOURINARY: No DYSURIA, No HEMATURIA HEMATOLOGIC/LYMPHATIC: No EASY BRUISING, No CERVICAL ADENOPATHY, No AXILLARY ADENOPATHY, No INGUINAL ADENOPATHY MUSCULOSKELETAL: No BONE PAIN, No MASS, No NORMAL RANGE OF MOTION SKIN/BREASTS: No BREAST MASS, No NIPPLE INVERSION, No RASH NEUROLOGICAL: No WEAKNESS-EXTREMETIES, No DIPLOPIA, No NUMBNESS, No TINGLING PSYCHOLOGICAL: No SUICIDAL IDEATION PHYSICAL EXAM VITALS: Vital Signs Date Time Temp Pulse Resp B/P (MAP) Pulse Ox O2 Delivery O2 Flow Rate FiO2 02/12/25 14:00 80 24 125/95 77 Room Air 21 02/12/25 11:47 0 02/12/25 11:00 98.1 GENERAL: ALERT, ORIENTED, APPEARS-NO ACUTE DISTRESS EYES: SCLERAE ANICTERIC, PUPILS EQUAL/REACTIVE, EXTRAOCULAR MUSCLES INTCT ENT/NECK: ORAL MUCOSA W/O LESIONS, OROPHARYNX IS CLEAR, NECK SUPPLE W/O MASSES RESPIRATORY: LUNGS CLEAR-AUSC/PERCUS CARDIOVASCULAR: REGULAR RATE, REGULAR RHYTHM GASTROINTESTINAL: ABDOMEN IS SOFT; No TENDER, No DISTENDED, No HEPATOSPLENOMEGALY; BOWEL SOUNDS PRESENT; No PALPABLE MASSES HEMATOLOGY/LYMPHATIC: No CERVICAL ADENOPATHY, No SUPRACLAVICULR ADENOPATHY, No AXILLARY ADENOPATHY, No INGUINAL ADENOPATHY MUSCULOSKELETAL: No CYANOSIS-EXTREMETIES, No CLUBBING, No EDEMA SKIN/BREASTS: No MASSES, No RASH, No HIVES NEUROLOGICAL: GROSSLY INTACT PSYCHOLOGICAL: MINI MENTAL ASSMT INTACT DIAGNOSTIC STUDIES [place] [id number] [place] [address] [phone] IMAGING REPORT Signed PATIENT: JYOTI SANTIAGO MR#: [id number] : 1965 SEX: F AGE: 59 LOCATION: [facility] ORDER 1634 STATUS: ADM IN REPORT#: [id number] SERVICE 163 REASON: r/o DVT of the bilateral lower extremities ORDERING PHYSICIAN: ANIL MORRISON MD PROCEDURE: VENOUS HERMANN - US VENOUS DOPPLER BILATERAL US VENOUS DOPPLER BILATERAL HISTORY: DVT COMPARISON: None TECHNIQUE: Bilateral lower extremity venous Doppler ultrasound study was performed. FINDINGS: The common femoral, femoral, popliteal, and posterior tibial veins are visualized. Normal flow with augmentation and compressibilities are demonstrated. The greater saphenous veins are also seen and grossly patent. IMPRESSION: 1. No evidence of deep venous thrombosis is seen. DICTATED BY: DARYL SCHULZ MD DATE: 02/11/251735 ELECTRONICALLY SIGNED BY: DARYL SCHULZ MD DATE: 02/11/251738 [facility] [address] [place], [place] [phone] IMAGING REPORT Signed PATIENT: JYOTI SANTIAGO MR#: [id number] : 1965 SEX: F AGE: 59 LOCATION: [facility] ORDER 9 STATUS: [facility] REPORT#: [id number] SERVICE 8 REASON: CHEST PAIN ORDERING PHYSICIAN: GEORGE BALLESTEROS MD PROCEDURE: CXR1VW - CHEST 1VW Exam Type: CHEST 1VW Clinical Information: CHEST PAIN Comparison: None Findings: The lungs are clear of infiltrates. The heart is normal in size. The bony and soft tissue structures of the chest are unremarkable. Impression: Clear lungs. DICTATED BY: STEVE LOPEZ MD DATE: 02/11/25950 ELECTRONICALLY SIGNED BY: STEVE LOPEZ MD DATE: 02/11/25953 IMPRESSION Autoimmune hemolytic anemia PLAN: Autoimmune hemolytic anemia -Continue high dose Dexamethasone until count improves. -FOBT ordered. If positive, recommend endoscopy/colonoscopy. -Do not transfuse patient due to positive Ritchie test and autoimmune hemolytic anemia. -Patient will benefit from folic acid, vitamin B12. Continue IV Venofer. SUSIE HERNANDEZ MD Feb 12, 2025 15:16
--- NOTE | 2025-02-12 20:31 | PN ---
[facility] PROGRESS NOTE Date Patient Seen: Feb 12, 2025 Time of Visit: 20:28 Supervising Physician: Dr. Lester Consulting Physician: Dr. 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 The patient remained on room air with optimal oxygen saturation. The staff nurse reports no acute events overnight. Vital signs were unremarkable laboratory data today showed low H&H 6.2/25.4 and a platelet count of 187. Chemistry panel was unremarkable. Microbiology sent to the labs showing a urine sample with Gram-negative rods greater than 100,000 colony count. Currently, the patient is receiving Venofer infusion also, the patient did receive transfusion of PRBCs. No other complaint. REVIEW OF SYSTEMS: 12 point ROS reviewed with patient. Pertinent positives mentioned above. Otherwise negative. PHYSICAL EXAM: GENERAL: Alert, weak, awake oriented x 3 HEENT: EOMI, Sclera non icteric, moist mucosa NECK: Supple, no JVD, trachea midline LUNGS: Clear breath sounds bilaterally. No wheezes HEART: Regular rate and rhythm. Normal S1 and S2, without murmurs ABD: Large body habitus EXT: No clubbing cyanosis or edema NEURO: Alert and oriented to person, follows commands Vital Signs (last 8hr) Date Time Temp Pulse Resp B/P (MAP) Pulse Ox O2 Delivery O2 Flow Rate FiO2 02/12/25 18:00 84 17 120/65 99 Room Air 21 02/12/25 17:00 84 19 135/72 97 Room Air 21 02/12/25 16:00 90 19 146/68 96 Room Air 21 02/12/25 15:30 97 Room Air* 0 21 02/12/25 15:00 98.1 82 20 139/97 97 Room Air 21 02/12/25 14:00 80 24 125/95 77 Room Air 21 02/12/25 13:00 84 30 123/61 96 Room Air 21 LABS: Hematology Labs: Test 02/12/25 13:23 02/12/25 04:42 02/11/25 11:29 Range/Units Hemoglobin 6.2 *L 12.0-16.0 g/dL Hematocrit 25.4 L 36-48 % White Blood Count 7.1 # 4.8-10.8 K/uL Red Blood Count 4.02 4.00-5.50 MIL/uL Mean Corpuscular Volume 60.2 L 79-99 fL Mean Corpuscular Hemoglobin 14.9 L 27.0-33.0 pg Mean Corpuscular Hemoglobin Concent 24.8 L 32.0-36.0 g/dL Red Cell Distribution Width 20.9 H 11.0-15.5 % Platelet Count 187 130-400 K/uL Mean Platelet Volume 7.5-10.5 fL Immature Granulocyte % (Auto) 1.3 H 0-1 % Neutrophils (%) (Auto) 88.6 H 40.0-77.0 % Lymphocytes (%) (Auto) 8.3 L 21.0-51.0 % Monocytes (%) (Auto) 1.3 L 3.0-13.0 % Eosinophils (%) (Auto) 0.1 0.0-8.0 % Basophils (%) (Auto) 0.4 0.0-5.0 % Neutrophils # (Auto) 6.3 1.8-7.7 K/uL Lymphocytes # (Auto) 0.6 L 1.0-4.8 K/uL Monocytes # (Auto) 0.1 0.1-1.0 K/uL Eosinophils # (Auto) 0.01 0.00-0.70 K/uL Basophils # (Auto) 0.03 0.00-0.20 K/uL Absolute Immature Granulocyte (auto 0.09 0-1 K/uL Nucleated Red Blood Cells 0.4 H 0.0-0.19 % White Cell Morphology Comment See comments Red Blood Cell Morphology See comments Chemistry Labs: Test 02/12/25 19:30 02/12/25 04:42 02/11/25 09:30 Range/Units Whole Blood Glucose 191 H 70-110 MG/DL Sodium Level 134 L 136-145 mmol/L Potassium Level 4.6 3.5-5.1 mmol/L Chloride Level 102 101-111 mmol/L Carbon Dioxide Level 25 21-32 mmol/L Blood Urea Nitrogen 8 7-18 mg/dL Creatinine 0.6 0.5-1.0 mg/dL Glomerular Filtration Rate Calc 104 >90 mL/min Random Glucose 341 H 70-105 mg/dL Total Calcium 8.7 8.5-10.1 mg/dL Magnesium Level 1.90 1.80-2.40 mg/dL Total Bilirubin 0.7 # 0.2-1.0 mg/dL Aspartate Amino Transf (AST/SGOT) 26 10-37 U/L Alanine Aminotransferase (ALT/SGPT) 26 12-78 U/L Alkaline Phosphatase 100 50-136 U/L Total Protein 7.1 6.0-8.3 g/dL Albumin 3.3 L 3.5-5.0 g/dL Iron Level 16 L 50-170 mcg/dL Total Iron Binding Capacity 514 H 250-450 mcg/dL Percent Iron Saturation 3.1 L 22-44 % Ferritin 4 L 15-150 ng/mL Direct Bilirubin 0.3 0.0-0.3 mg/dL Lactate Dehydrogenase 160 81-234 U/L Total Creatine Kinase 15 L 21-232 U/L Troponin I High Sensitivity 10 4-50 ng/L B-Type Natriuretic Peptide 30 0-100 pg/mL Coagulation Labs: Test 02/11/25 18:06 Range/Units Prothrombin Time 10.9 9.6-11.6 SEC Prothromb Time International Ratio 1.03 0.85-1.15 Activated Partial Thromboplast Time 26.6 26.3-35.5 SEC DIAGNOSTICS / RADIOLOGY RESULTS: [ ] PLAN 02/12/2025: For now, we are going to continue current management for the patient. She will complete Venofer transfusion as ordered by the asphalt worker. I will order serial H&H checks q.6 and we will transfuse as necessary. The patient will remain on high-dose dexamethasone 40 mg as ordered by the he matologist and we will monitor the blood glucose trend. The patient will continue on antibiotic therapy with Rocephin and we will follow the urine culture results. We will repeat surveillance labs in the morning. We will monitor the patient's progress and response to management. We will continue to provide general supportive care, GI and DVT prophylaxis. Further orders per att ending MD and hospital course. NEURO: Minimize central acting medications as possible. Maintain fall precautions, adequate lighting during the day PULMONARY: Supplemental 02 as needed. Maintain aspiration precautions at all times CARDIOVASCULAR: Follow hemodynamics. Vital signs per facility protocol GI & NUTRITION: Continue with nutritional support. Continue stool softeners and laxatives as needed. KIDNEYS & ELECTROLYTES: Strict monitoring of intake, output and overall fluid balance. Avoid nephrotoxic medications to the extent possible. Medications to be dosed according to renal function. Monitor electrolytes and replace as needed ENDOCRINE: Maintain blood glucose between 100-180 at all times. Hypoglycemia protocol in place INFECTIOUS DISEASE: Trend temperature, WBC and procalcitonin level Follow cultures, deescalate antibiotics as soon as possible. Panculture if new onset fever ONCOLOGY/HEMATOLOGY/COAGULATION: Monitor for s/s of bleeding Monitor hemoglobin, coagulation studies as needed SKIN: Pressure ulcer prevention per facility protocol Specialty mattress ORTHO/REHAB: Continue PT/OT Prophylaxis: Continue GI and DVT prophylaxis Code Status: Full Resuscitation Disposition: TBD Patient was seen and case discussed with tristan RANDALL. Plan of care was discussed and agreed upon. CARLOS LOPEZ NP Feb 12, 2025 20:31
[2025-02-13] VITALS (39 sets, daily range): BP systolic 91–150; BP diastolic 38–97; PULSE 51–92; RESP 5–39; TEMP 97.7–98.5; O2SAT 97–98
[2025-02-13 04:42] LABS: BASOPHILS # (AUTO) 0.02 K/uL (0.00-0.20); BASOPHILS % (AUTO) 0.2 % (0.0-5.0); EOSINOPHILS # (AUTO) 0.01 K/uL (0.00-0.70); EOSINOPHILS % (AUTO) 0.1 % (0.0-8.0); HEMATOCRIT 25.1 % (36-48); IMMATURE GRANULOCYTE ABSOLUTE 0.58 K/uL (0-1); LYMPHOCYTES # (AUTO) 1.1 K/uL (1.0-4.8); LYMPHOCYTES % (AUTO) 8.6 % (21.0-51.0); MEAN CORPUSCULAR HEMOGLOBIN 15.3 pg (27.0-33.0); MEAN CORPUSCULAR HGB CONC 23.9 g/dL (32.0-36.0); MEAN CORPUSCULAR VOLUME 63.9 fL (79-99); MONOCYTES # (AUTO) 0.3 K/uL (0.1-1.0); MONOCYTES % (AUTO) 2.3 % (3.0-13.0); NEUTROPHILS # (AUTO) 10.8 K/uL (1.8-7.7); NEUTROPHILS % (AUTO) 84.3 % (40.0-77.0); NUCLEATED RED BLOOD CELLS 1.2 % (0.0-0.19); PLATELET COUNT (AUTO) 209 K/uL (130-400); RED BLOOD CELL COUNT(AUTO) 3.93 MIL/uL (4.00-5.50); RED CELL DISTRIBUTION WIDTH 21.8 % (11.0-15.5); WHITE BLOOD COUNT (AUTO) 12.8 K/uL (4.8-10.8)
[2025-02-13 04:47] LABS: CREATININE 0.5 mg/dL (0.5-1.0); POTASSIUM 4.4 mmol/L (3.5-5.1)
[2025-02-13] MEDS ORDERED: proPOFol 10 MG/ML 20ML VIAL IV ONE (08:06)
[2025-02-13] MEDS ORDERED: ondanSETRON 4MG INJ ONE (08:08)
[2025-02-13] MEDS ORDERED: metoPROLOL tartRATE 1 MG/ML 5ML VIAL IV ONE (09:30)
[2025-02-13] MEDS: CYANOCOBALAMIN (VITAMIN B-12) 1,000 MCG TABLET PO SCH (09:37)
--- NOTE | 2025-02-13 10:04 | PN ---
[facility] PROGRESS NOTE Date Patient Seen: Feb 13, 2025 Time of Visit: 10:04 Supervising Physician: Dr. Lester Consulting Physician: Dr. 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 The patient remained on room air with optimal oxygen saturation. The staff nurse reports no acute events overnight. Vital signs were unremarkable laboratory data today showed low H&H 6.2/25.4 and a platelet count of 187. Chemistry panel was unremarkable. Microbiology sent to the labs showing a urine sample with Gram-negative rods greater than 100,000 colony count. Currently, the patient is receiving Venofer infusion also, the patient did receive transfusion of PRBCs. No other complaint. 02/13/2025: At the time of my evaluation, the patient was lying in bed. The patient is off sedation and has a RASS score of -3. She remains on mechanical ve ntilator support. No ABGs ordered for today. Vital signs parameters were unremarkable. I's and O's showed a urinary output of 100 mL, gastric output of 50 mL and a negative balance of +1601.1, with a cumulative balance totaling +47467.4. Laboratory data today showed improved WBC count 9.9. There was a drop in platelet count 286. Renal parameters showing a BUN of 59, creatinine of 1.5, GFR of 39 and a CO2 of 20. Liver enzymes total bilirubin of 1.1, AST 494, ALT of 604 and a alk-phos of 196. We will repeat blood cultures showing no growth. Chest x-ray today, showed persistent bilateral infiltrates and cardiomegaly. She continues on antibiotic coverage with fluconazole, Merrem and Zyvox. The patient was started on feeding with Nepro via the G-tube yesterday and so far tolerating well. Overnight, the patient had 3 bowel movements. No other complaint. REVIEW OF SYSTEMS: 12 point ROS reviewed with patient. Pertinent positives mentioned above. Otherwise negative. PHYSICAL EXAM: GENERAL: Alert, weak, awake oriented x 3 HEENT: EOMI, Sclera non icteric, moist mucosa NECK: Supple, no JVD, trachea midline LUNGS: Clear breath sounds bilaterally. No wheezes HEART: Regular rate and rhythm. Normal S1 and S2, without murmurs ABD: Large body habitus EXT: No clubbing cyanosis or edema NEURO: Alert and oriented to person, follows commands Vital Signs (last 8hr) Date Time Temp Pulse Resp B/P (MAP) Pulse Ox O2 Delivery O2 Flow Rate FiO2 02/13/25 09:15 82 21 131/76 95 Room Air 02/13/25 09:00 79 22 112/54 93 Room Air 02/13/25 08:45 76 21 120/70 93 Room Air 02/13/25 08:30 97.7 80 20 125/60 93 Room Air 02/13/25 08:08 Mask 02/13/25 08:08 Mask 10.0 02/13/25 07:00 71 20 126/62 94 Room Air 02/13/25 05:43 73 18 126/62 95 02/13/25 05:40 78 19 92 02/13/25 05:25 79 20 87 02/13/25 05:13 67 112/62 96 02/13/25 05:10 64 95 02/13/25 04:55 69 11 93 02/13/25 04:43 51 17 107/39 100 02/13/25 04:43 51 17 107/39 100 02/13/25 04:40 63 17 97 02/13/25 04:34 79 19 109/50 99 02/13/25 04:30 69 18 95 02/13/25 04:15 69 17 96 02/13/25 04:00 98.4 80 15 98 02/13/25 04:00 97 Room Air* 0 21 02/13/25 03:45 68 17 94 02/13/25 03:43 66 17 122/49 98 02/13/25 03:35 79 12 123/52 99 02/13/25 03:30 69 18 94 02/13/25 03:15 69 22 94 02/13/25 03:13 69 21 91/38 96 02/13/25 03:00 84 39 91 02/13/25 02:45 76 93 02/13/25 02:43 80 115/60 93 02/13/25 02:30 77 19 97 02/13/25 02:15 77 96 02/13/25 02:13 82 5 136/68 97 02/13/25 02:07 86 10 150/69 97 LABS: Hematology Labs: Test 02/13/25 04:19 02/12/25 04:42 02/11/25 11:29 Range/Units White Blood Count 12.8 #H 4.8-10.8 K/uL Red Blood Count 3.93 L 4.00-5.50 MIL/uL Hemoglobin 6.0 *L 12.0-16.0 g/dL Hematocrit 25.1 L 36-48 % Mean Corpuscular Volume 63.9 L 79-99 fL Mean Corpuscular Hemoglobin 15.3 L 27.0-33.0 pg Mean Corpuscular Hemoglobin Concent 23.9 L 32.0-36.0 g/dL Red Cell Distribution Width 21.8 H 11.0-15.5 % Platelet Count 209 130-400 K/uL Mean Platelet Volume 7.5-10.5 fL Immature Granulocyte % (Auto) 4.5 H 0-1 % Neutrophils (%) (Auto) 84.3 H 40.0-77.0 % Lymphocytes (%) (Auto) 8.6 L 21.0-51.0 % Monocytes (%) (Auto) 2.3 L 3.0-13.0 % Eosinophils (%) (Auto) 0.1 0.0-8.0 % Basophils (%) (Auto) 0.2 0.0-5.0 % Neutrophils # (Auto) 10.8 H 1.8-7.7 K/uL Lymphocytes # (Auto) 1.1 1.0-4.8 K/uL Monocytes # (Auto) 0.3 0.1-1.0 K/uL Eosinophils # (Auto) 0.01 0.00-0.70 K/uL Basophils # (Auto) 0.02 0.00-0.20 K/uL Absolute Immature Granulocyte (auto 0.58 0-1 K/uL Nucleated Red Blood Cells 1.2 H 0.0-0.19 % Reticulocyte Count (auto) 5.69093 H 0.42-2.23 % Immature Reticulocyte Fraction 48.50 H 0.18-0.48 % White Cell Morphology Comment See comments Red Blood Cell Morphology See comments Chemistry Labs: Test 02/13/25 09:31 02/13/25 04:19 02/12/25 04:42 Range/Units Whole Blood Glucose 264 H 70-110 MG/DL Sodium Level 139 136-145 mmol/L Potassium Level 4.4 3.5-5.1 mmol/L Chloride Level 104 101-111 mmol/L Carbon Dioxide Level 26 21-32 mmol/L Blood Urea Nitrogen 10 7-18 mg/dL Creatinine 0.5 0.5-1.0 mg/dL Glomerular Filtration Rate Calc 109 >90 mL/min Random Glucose 328 H 70-105 mg/dL Total Calcium 8.9 8.5-10.1 mg/dL Magnesium Level 1.90 1.80-2.40 mg/dL Total Bilirubin 0.7 # 0.2-1.0 mg/dL Aspartate Amino Transf (AST/SGOT) 26 10-37 U/L Alanine Aminotransferase (ALT/SGPT) 26 12-78 U/L Alkaline Phosphatase 100 50-136 U/L Total Protein 7.1 6.0-8.3 g/dL Albumin 3.3 L 3.5-5.0 g/dL Coagulation Labs: Test 02/11/25 18:06 Range/Units Prothrombin Time 10.9 9.6-11.6 SEC Prothromb Time International Ratio 1.03 0.85-1.15 Activated Partial Thromboplast Time 26.6 26.3-35.5 SEC DIAGNOSTICS / RADIOLOGY RESULTS: [ ] PLAN 02/12/2025: For now, we are going to continue current management for the patient. She will complete Venofer transfusion as ordered by the commercial real estate assistant. I will order serial H&H checks q.6 and we will transfuse as necessary. The patient will remain on high-dose dexamethasone 40 mg as ordered by the commercial real estate assistant and we will monitor the blood glucose trend. The patient will continue on antibiotic therapy with Rocephin and we will follow the urine culture results. We will repeat surveillance labs in the morning. We will monitor the patient's progress and response to management. We will continue to provide general supportive care, GI and DVT prophylaxis. Further orders per attending MD and hospital course. 02/13/2025: For now, going to continue current management for the patient. I am going to order a ABG now. We will continue with antibiotic therapy as ordered. I am going to discuss with Nephrology once again regarding the possibility of starting the patient on diuretic challenge. We will monitor the urinary output. We will repeat surveillance labs in the morning. I discussed the findings and plan for further management with the patient. We will monitor the patient's progress and response to management. We will continue to provide general supportive care, GI and DVT prophylaxis. Further orders per attending MD and hospital course. NEURO: Minimize central acting medications as possible. Maintain fall precautions, adequate lighting during the day PULMONARY: Supplemental 02 as needed. Maintain aspiration precautions at all times CARDIOVASCULAR: Follow hemodynamics. Vital signs per facility protocol GI & NUTRITION: Continue with nutritional support. Continue stool softeners and laxatives as needed. KIDNEYS & ELECTROLYTES: Strict monitoring of intake, output and overall fluid balance. Avoid nephrotoxic medications to the extent possible. Medications to be dosed according to renal function. Monitor electrolytes and replace as needed ENDOCRINE: Maintain blood glucose between 100-180 at all times. Hypoglycemia protocol in place INFECTIOUS DISEASE: Trend temperature, WBC and procalcitonin level Follow cultures, deescalate antibiotics as soon as possible. Panculture if new onset fever ONCOLOGY/HEMATOLOGY/COAGULATION: Monitor for s/s of bleeding Monitor hemoglobin, coagulation studies as needed SKIN: Pressure ulcer prevention per facility protocol Specialty mattress ORTHO/REHAB: Continue PT/OT Prophylaxis: Continue GI and DVT prophylaxis Code Status: Full Resuscitation Disposition: TBD Patient was seen and case discussed with tristan RANDALL. Plan of care was discussed and agreed upon. CARLOS LOPEZ NP Feb 13, 2025 10:04
[2025-02-13] MEDS: INSULIN GLARgine 100 UNITS/ML 10 ML VIAL SQ SCH (11:01)
--- NOTE | 2025-02-13 11:37 | PN ---
[facility] PROGRESS NOTE Date of Service: Feb 13, 2025 Time of Service: 11:31 SUBJECTIVE: This is a 59-year-old female with underlying history of gastric antral vascular ectasia, history of angioectasias involving the stomach requiring endoscopy, chronic anemia with iron deficiency on outpatient IV iron infusion therapy, hypothyroidism, obesity who presented to the ER February 11, 2025 for further evaluation of fatigue, shortness of breath and dyspnea on exertion. Symptoms have been ongoing for the past and has been progressively getting worse. Patient reports having generalized debility as well. Patient reports that she has had history of chronic anemia and has previously needed blood transfusion. Her hemoglobin usually runs close to 8-10. She is followed by Dr. Slaughter with Hematology as outpatient and is on outpatient IV iron therapy. Her last dose of IV iron infusion therapy was in October this year. Last time, patient needed blood transfusion was about 3-4 years ago. Patient has had previous endoscopy with most recent being in 08/2024 at [facility] where patient was found to have angioectasias involving the stomach requiring argon plasma coagulation. Patient was also found to have LA grade a reflux esophagitis and chronic gastritis. Patient denied noticing overt signs of GI bleeding and denies any melena, hematochezia, or hematemesis. She denied previous history of NM or cardiac comorbidities. On presentation to the hospital, patient was noted to be afebrile with T-max of 98.1 F, blood pressure of 123/46, and heart rate of 76. Labs on presentation showed WBC count of 5400, hemoglobin 5.7, MCV of 62, platelet count of 000959. BMP remarkable for corrected sodium of 136, potassium 4.1, creatinine 0.5, blood glucose of 380. Patient admitted for management of severe anemia with iron deficiency in the setting of chronic angioectasias in the stomach with concerns for chronic GI bleeding. Patient noted to have multiple antibodies on type and screen with a positive Ritchie test 02/12 patient is seen and examined at bedside, case discussed with the RN, patient on dexamethasone and iron IV, alert oriented x3, hemodynamically stable, afebrile, hemoglobin today 6.0. 02/13 patient remains admitted to the ICU, alert oriented x3, hemodynamically st able, getting her last dose of Venofer IV, BP 131/76, afebrile, saturating normal on room air. Hemoglobin today of 6.0, hematocrit 25.1. EGD done yesterday, impression: -normal esophagus -gastric antral vascular ectasia. -multiple bleeding UA to assist in the stomach. Treated with the argon plasma coagulation. -normal duodenal bulb and 2nd portion of the duodenum. -no specimens collected. Recommendations: -Clear liquid diet. -Carafate suspension -high-dose PPIs. -consider discussion with Hematology for possible octreotide therapy REVIEW OF SYSTEMS CONSTITUTIONAL: Denies fevers, chills, or night sweats. No unintentional weight loss reported. NEUROLOGICAL: Denies headache, amaurosis fugax, motor weakness, sensory deficit, vertigo/spinning sensation, gait abnormalities, or tremors. ENT: No hearing loss, otalgia, otorrhea, rhinitis, rhinorrhea, hoarseness, or sore throat. CARDIOVASCULAR: Denies any exertional angina, dyspnea on exertion, orthopnea, paroxysmal nocturnal dyspnea, palpitations, life-threatening arrhythmias, claudication. PULMONARY: Denies any shortness of breath, cough, phlegm/sputum, hemoptysis, pleuritic chest pain. SLEEP: Denies morning headaches, daytime somnolence or napping. Denies difficulty falling asleep, staying asleep, waking from sleep. Denies knowledge of snoring. GASTROINTESTINAL: Denies any type of dysphagia to either liquids or solids. Denies nausea, vomiting, pyrosis, early satiety, abdominal pain, diarrhea, constipation, or changes in stool consistency or caliber. Denies coffee-ground emesis, hematemesis, hematochezia, or melanotic stools. GENITOURINARY: Denies frequency, urgency, nocturia, hematuria or incontinence (Storage/Irritative symptoms.) Low urinary stream, straining to void, urinary intermittency or hesitancy, splitting of the voiding stream, terminal dribbling. ENDOCRINOLOGIC: Denies polyuria, polydipsia, polyphagia or heat/cold intolerances. HEMATOLOGIC: Anemia, shortness of breath, dyspnea on exertion, fatigue ONCOLOGIC: Denies personal history of malignancy. DERMATOLOGIC: Denies rashes or pruritus. PSYCHIATRIC: Denies any suicidal or homicidal ideation. Denies hallucinations. PHYSICAL EXAM GENERAL APPEARANCE: The patient is awake, alert, and oriented, in no acute cardiopulmonary distress. Patient is obese and appears pale NEUROLOGICAL: Cranial nerves II-XII grossly intact. Motor is 5/5 in bilateral upper and lower extremities proximal to distal. No sensory deficits. HEENT: Face is symmetric. Pupils are equal and reactive. Extraocular movements are intact. NECK: Supple. No JVD. No thyromegaly. No submental, submandibular, pre- /postauricular, occipital or supraclavicular lymphadenopathy. CHEST: Normal chest expansion. No Telemetry. LUNGS: Absence of any rales, rhonchi or any wheezing. CARDIOVASCULAR: Regular. S1 and S2 normal. No appreciable rubs, murmurs or gallops. ABDOMEN: Soft, nontender, and nondistended. There is no rebound, voluntary guarding, or rigidity. : Deferred. No Pino. EXTREMITIES: Non-edematous and not cyanotic. No clubbing. Good capillary refill. SKIN: No skin breakdown. Vital Signs (last 8hr) Date Time Temp Pulse Resp B/P (MAP) Pulse Ox O2 Delivery O2 Flow Rate FiO2 02/13/25 09:15 82 21 131/76 95 Room Air 02/13/25 09:00 79 22 112/54 93 Room Air 02/13/25 08:45 76 21 120/70 93 Room Air 02/13/25 08:30 97.7 80 20 125/60 93 Room Air 02/13/25 08:30 98 Room Air* 0 21 02/13/25 08:08 Mask 02/13/25 08:08 Mask 10.0 02/13/25 07:00 71 20 126/62 94 Room Air 02/13/25 05:43 73 18 126/62 95 02/13/25 05:40 78 19 92 02/13/25 05:25 79 20 87 02/13/25 05:13 67 112/62 96 02/13/25 05:10 64 95 02/13/25 04:55 69 11 93 02/13/25 04:43 51 17 107/39 100 02/13/25 04:43 51 17 107/39 100 02/13/25 04:40 63 17 97 02/13/25 04:34 79 19 109/50 99 02/13/25 04:30 69 18 95 02/13/25 04:15 69 17 96 02/13/25 04:00 98.4 80 15 98 02/13/25 04:00 97 Room Air* 0 21 02/13/25 03:45 68 17 94 02/13/25 03:43 66 17 122/49 98 02/13/25 03:35 79 12 123/52 99 LABS: Laboratory: Test 02/13/25 09:31 02/13/25 04:19 02/12/25 04:42 02/11/25 18:06 Range/Units Whole Blood Glucose 264 H 70-110 MG/DL White Blood Count 12.8 #H 4.8-10.8 K/uL Red Blood Count 3.93 L 4.00-5.50 MIL/uL Hemoglobin 6.0 *L 12.0-16.0 g/dL Hematocrit 25.1 L 36-48 % Mean Corpuscular Volume 63.9 L 79-99 fL Mean Corpuscular Hemoglobin 15.3 L 27.0-33.0 pg Mean Corpuscular Hemoglobin Concent 23.9 L 32.0-36.0 g/dL Red Cell Distribution Width 21.8 H 11.0-15.5 % Platelet Count 209 130-400 K/uL Mean Platelet Volume 7.5-10.5 fL Immature Granulocyte % (Auto) 4.5 H 0-1 % Neutrophils (%) (Auto) 84.3 H 40.0-77.0 % Lymphocytes (%) (Auto) 8.6 L 21.0-51.0 % Monocytes (%) (Auto) 2.3 L 3.0-13.0 % Eosinophils (%) (Auto) 0.1 0.0-8.0 % Basophils (%) (Auto) 0.2 0.0-5.0 % Neutrophils # (Auto) 10.8 H 1.8-7.7 K/uL Lymphocytes # (Auto) 1.1 1.0-4.8 K/uL Monocytes # (Auto) 0.3 0.1-1.0 K/uL Eosinophils # (Auto) 0.01 0.00-0.70 K/uL Basophils # (Auto) 0.02 0.00-0.20 K/uL Absolute Immature Granulocyte (auto 0.58 0-1 K/uL Nucleated Red Blood Cells 1.2 H 0.0-0.19 % Reticulocyte Count (auto) 5.33489 H 0.42-2.23 % Immature Reticulocyte Fraction 48.50 H 0.18-0.48 % Sodium Level 139 136-145 mmol/L Potassium Level 4.4 3.5-5.1 mmol/L Chloride Level 104 101-111 mmol/L Carbon Dioxide Level 26 21-32 mmol/L Blood Urea Nitrogen 10 7-18 mg/dL Creatinine 0.5 0.5-1.0 mg/dL Glomerular Filtration Rate Calc 109 >90 mL/min Random Glucose 328 H 70-105 mg/dL Total Calcium 8.9 8.5-10.1 mg/dL White Cell Morphology Comment See comments Magnesium Level 1.90 1.80-2.40 mg/dL Total Bilirubin 0.7 # 0.2-1.0 mg/dL Aspartate Amino Transf (AST/SGOT) 26 10-37 U/L Alanine Aminotransferase (ALT/SGPT) 26 12-78 U/L Alkaline Phosphatase 100 50-136 U/L Total Protein 7.1 6.0-8.3 g/dL Albumin 3.3 L 3.5-5.0 g/dL Prothrombin Time 10.9 9.6-11.6 SEC Prothromb Time International Ratio 1.03 0.85-1.15 Activated Partial Thromboplast Time 26.6 26.3-35.5 SEC Current Medications Medications (Trade) Dose Ordered Sig/Gary Route PRN Reason Start Time Stop Time Status Last Admin Dose Admin Acetaminophen (TYLenol 325MG TAB) 650 mg Q6H PRN PO MILD PAIN (1-3) 02/11/25 17:00 03/13/25 16:59 Ceftriaxone Sodium (ROCEphine 1G INJ) 1 gm Q24H IVPB 02/11/25 17:00 02/21/25 16:59 02/12/25 16:08 1 GM Dexamethasone Sodium Phosphate (dexaMETHasone 4MG/ML 1ML VIAL) 10 mg DAILY PRN IVP premedication for blood transf 02/11/25 17:00 02/11/25 19:23 DC Dexamethasone Sodium Phosphate 40 mg/Sodium Chloride 50 ml @ 100 mls/hr Q24H IV 02/11/25 20:00 03/13/25 19:59 02/12/25 19:52 100 MLS/HR Dextrose (D50w) 50 ml AD PRN IV HYPOGLYCEMIA PROTOCOL 02/11/25 17:00 03/13/25 16:59 Diphenhydramine HCl (BENAdryl INJ) 25 mg DAILY PRN IV premedications for blood trans 02/11/25 17:00 03/13/25 16:59 Folic Acid (FOLic ACID 1 MG TABLET) 1 mg DAILY PO 02/12/25 09:00 03/14/25 08:59 02/13/25 09:37 1 MG Glucagon (Glucagon 1mg Kit) 1 mg AD PRN IM HYPOGLYCEMIA PROTOCOL 02/11/25 17:00 03/13/25 16:59 Insulin Glargine (LANtus 100 UNITS/ML 10 ML VIAL) 15 units BID@0730,2100 SQ 02/13/25 10:30 03/15/25 10:29 02/13/25 11:01 15 UNITS Insulin Glargine (LANtus 100 UNITS/ML 10 ML VIAL) 30 units HS SQ 02/11/25 21:00 02/11/25 19:23 DC Insulin Human Regular (humuLIN R 100 UNIT/ML 3ML) INSULIN SLIDING SCAL... ACHS SQ 02/11/25 16:30 02/11/25 19:23 DC 02/11/25 17:03 10 UNIT Insulin Human Regular (humuLIN R 100 UNIT/ML 3ML) INSULIN SLIDING SCAL... Q4H4 SQ 02/12/25 00:00 03/14/25 00:00 02/13/25 09:46 12 UNIT Insulin Human Regular 100 unit/ Sodium Chloride 100 ml @ 0 mls/hr AD PRN IV HYPERGLYCEMIA PROTOCOL 02/11/25 20:00 03/13/25 19:59 Iron Sucrose 300 mg/Sodium Chloride 250 ml @ 83 mls/hr DAILY IV 02/11/25 19:00 02/13/25 12:01 02/13/25 09:38 83 MLS/HR Ondansetron HCl (zoFRAN 4MG INJ) 4 mg Q6H PRN IVP NAUSEA/VOMITING 02/11/25 17:00 03/13/25 16:59 Pantoprazole Sodium (PROTonix 40MG INJ) 40 mg Q12H IVP 02/11/25 16:30 03/13/25 16:29 02/13/25 04:37 40 MG Pharmacy Profile Note (Pharmacy Communication) 1 each ONCE MISC 02/11/25 19:30 02/12/25 08:35 DC 02/11/25 19:30 1 EACH Pharmacy Profile Note (Pharmacy Communication) 1 each ONCE MISC 02/11/25 19:30 02/12/25 08:35 DC 02/11/25 19:30 1 EACH Sodium Chloride 1,000 ml @ 50 mls/hr Q20H IV 02/11/25 17:00 03/13/25 16:59 02/11/25 22:17 50 MLS/HR Vitamin B Complex (Vitamin B-12) 1,000 mcg DAILY PO 02/13/25 09:00 03/15/25 08:59 02/13/25 09:37 1,000 MCG DIAGNOSTICS / RADIOLOGY: [ ] ASSESSMENT: Severe symptomatic acute on chronic anemia, POA Severe iron deficiency anemia, POA History of chronic gastric vascular angiectasia of the stomach, POA History of suspected chronic upper GI bleed, POA Mild UTI, POA Uncontrolled hyperglycemia, POA History of type 2 diabetes mellitus, POA Morbid obesity, POA Hypertension, POA Hypothyroidism, POA History of anemia requiring prior blood transfusions, POA PLAN: patient remains admitted to the ICU, alert oriented x3, hemodynamically stable, getting her last dose of Venofer IV, BP 131/76, afebrile, saturating normal on room air. Hemoglobin today of 6.0, hematocrit 25.1. EGD done yesterday, impression: -normal esophagus -gastric antral vascular ectasia. -multiple bleeding UA to assist in the stomach. Treated with the argon plasma coagulation. -normal duodenal bulb and 2nd portion of the duodenum. -no specimens collected. Recommendations: -Clear liquid diet. -Carafate suspension -high-dose PPIs. -consider discussion with Hematology for possible octreotide therapy NEURO: Minimize central acting medications as possible. Fall Precautions. Well lighted room through the day and minimize interruptions through the night to prevent acute delirium. PULMONARY: Supplemental 02 as needed BiPAP as necessary, for respiratory distress Titrate Fio2 to keep Spo2 > or = 90% DuoNebs and CPT as needed IS hourly while awake for pulmonary hygiene prn Out of bed to chair as tolerated Maintain aspiration precautions at all times CARDIOVASCULAR: Follow hemodynamics. Vital signs per facility protocol GI & NUTRITION: Continue nutritional support Aspirations precautions Prokinetic agents and laxatives as needed KIDNEYS & ELECTROLYTES: Strict monitoring of intake and output Daily weights Avoid nephrotoxic agents Monitor electrolytes and replace as needed Goal urine output of 30mL/hr or 0.5mL/kg/hr Medications to be dosed according to renal function. Avoid contrast if possible ENDOCRINE: Maintain blood glucose between 100-180 at all times. Insulin sliding scale for blood glucose management Hypoglycemia and hyperglycemia protocol in place INFECTIOUS DISEASE: Trend temperature, WBC and procalcitonin level Follow cultures, deescalate antibiotics as soon as possible. Panculture if new onset fever HEMATOLOGY & COAGULATION: Monitor H&H. Keep Hgb > 7 Transfuse 1 unit of PRBC for Hgb < 7 Transfuse 1 pack of platelets of platelets < 20, 000 Watch for any signs and symptoms of bleeding SKIN: Pressure ulcer prevention per facility protocol Specialty mattress as needed ORTHO/REHAB Continue PT/OT PRN: MEDICATIONS Tylenol 650 mg po every 4 hrs for fever zofran 4 mg IV every 6 hrs for n/v Hydralazine 5 mg IV every 4 hrs systolic pressure > 160 bowel regiment: lactulose 20 gm PO BID PRN constipation Supportive measures: Continue GI and DVT prophylaxis Disposition: Pending improvement in clinical condition All questions answered time spent: > 35 min CHRISTEL BANEGAS MD Feb 13, 2025 11:37
[2025-02-13] MEDS: SUCRALFATE 1 GM/10 ML PO SCH (12:06)
--- NOTE | 2025-02-13 15:16 | PN ---
[facility] PROGRESS NOTE Date Patient Seen: Feb 13, 2025 Time of Visit: 15:14 Supervising Physician: Dr. Lester Consulting Physician: Dr. 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 The patient remained on room air with optimal oxygen saturation. The staff nurse reports no acute events overnight. Vital signs were unremarkable laboratory data today showed low H&H 6.2/25.4 and a platelet count of 187. Chemistry panel was unremarkable. Microbiology sent to the labs showing a urine sample with Gram-negative rods greater than 100,000 colony count. Currently, the patient is receiving Venofer infusion also, the patient did receive transfusion of PRBCs. No other complaint. 02/13/2025: At the time of my evaluation, the patient is sitting up to the bedside chair. She is on room air and with optimal oxygen saturation. On the monitor, vital sign parameters are unremarkable. Laboratory data today showed a WBC of 12.8, H&H 6.0/25.1 and a platelet count of 209. Chemistry panel unremarkable. Urine culture resulted positive for E coli and and patient is currently on IV Rocephin. The patient underwent EGD today as planned and showed a normal esophagus, GAVE, multiple bleeding angioectasias in the stomach which were treated with argon plasma coagulation (APC), normal duodenal bulb and 2nd portion of the duodenum, no specimens collected. No new review today. No other complaint. REVIEW OF SYSTEMS: 12 point ROS reviewed with patient. Pertinent positives mentioned above. Otherwise negative. PHYSICAL EXAM: GENERAL: Alert, weak, awake oriented x 3 HEENT: EOMI, Sclera non icteric, moist mucosa NECK: Supple, no JVD, trachea midline LUNGS: Clear breath sounds bilaterally. No wheezes HEART: Regular rate and rhythm. Normal S1 and S2, without murmurs ABD: Large body habitus EXT: No clubbing cyanosis or edema NEURO: Alert and oriented to person, follows commands Vital Signs (last 8hr) Date Time Temp Pulse Resp B/P (MAP) Pulse Ox O2 Delivery O2 Flow Rate FiO2 02/13/25 12:00 97.7 83 24 146/76 98 Room Air 02/13/25 12:00 98 Room Air* 0 21 02/13/25 09:15 82 21 131/76 95 Room Air 02/13/25 09:00 79 22 112/54 93 Room Air 02/13/25 08:45 76 21 120/70 93 Room Air 02/13/25 08:30 97.7 80 20 125/60 93 Room Air 02/13/25 08:30 98 Room Air* 0 21 02/13/25 08:08 Mask 02/13/25 08:08 Mask 10.0 LABS: Hematology Labs: Test 02/13/25 04:19 02/12/25 04:42 Range/Units White Blood Count 12.8 #H 4.8-10.8 K/uL Red Blood Count 3.93 L 4.00-5.50 MIL/uL Hemoglobin 6.0 *L 12.0-16.0 g/dL Hematocrit 25.1 L 36-48 % Mean Corpuscular Volume 63.9 L 79-99 fL Mean Corpuscular Hemoglobin 15.3 L 27.0-33.0 pg Mean Corpuscular Hemoglobin Concent 23.9 L 32.0-36.0 g/dL Red Cell Distribution Width 21.8 H 11.0-15.5 % Platelet Count 209 130-400 K/uL Mean Platelet Volume 7.5-10.5 fL Immature Granulocyte % (Auto) 4.5 H 0-1 % Neutrophils (%) (Auto) 84.3 H 40.0-77.0 % Lymphocytes (%) (Auto) 8.6 L 21.0-51.0 % Monocytes (%) (Auto) 2.3 L 3.0-13.0 % Eosinophils (%) (Auto) 0.1 0.0-8.0 % Basophils (%) (Auto) 0.2 0.0-5.0 % Neutrophils # (Auto) 10.8 H 1.8-7.7 K/uL Lymphocytes # (Auto) 1.1 1.0-4.8 K/uL Monocytes # (Auto) 0.3 0.1-1.0 K/uL Eosinophils # (Auto) 0.01 0.00-0.70 K/uL Basophils # (Auto) 0.02 0.00-0.20 K/uL Absolute Immature Granulocyte (auto 0.58 0-1 K/uL Nucleated Red Blood Cells 1.2 H 0.0-0.19 % Reticulocyte Count (auto) 5.08542 H 0.42-2.23 % Immature Reticulocyte Fraction 48.50 H 0.18-0.48 % White Cell Morphology Comment See comments Chemistry Labs: Test 02/13/25 09:31 02/13/25 04:19 02/12/25 04:42 Range/Units Whole Blood Glucose 264 H 70-110 MG/DL Sodium Level 139 136-145 mmol/L Potassium Level 4.4 3.5-5.1 mmol/L Chloride Level 104 101-111 mmol/L Carbon Dioxide Level 26 21-32 mmol/L Blood Urea Nitrogen 10 7-18 mg/dL Creatinine 0.5 0.5-1.0 mg/dL Glomerular Filtration Rate Calc 109 >90 mL/min Random Glucose 328 H 70-105 mg/dL Total Calcium 8.9 8.5-10.1 mg/dL Magnesium Level 1.90 1.80-2.40 mg/dL Total Bilirubin 0.7 # 0.2-1.0 mg/dL Aspartate Amino Transf (AST/SGOT) 26 10-37 U/L Alanine Aminotransferase (ALT/SGPT) 26 12-78 U/L Alkaline Phosphatase 100 50-136 U/L Total Protein 7.1 6.0-8.3 g/dL Albumin 3.3 L 3.5-5.0 g/dL Coagulation Labs: Test 02/11/25 18:06 Range/Units Prothrombin Time 10.9 9.6-11.6 SEC Prothromb Time International Ratio 1.03 0.85-1.15 Activated Partial Thromboplast Time 26.6 26.3-35.5 SEC DIAGNOSTICS / RADIOLOGY RESULTS: [ ] PLAN 02/12/2025: For now, we are going to continue current management for the patient. She will complete Venofer transfusion as ordered by the business account executive. I will order serial H&H checks q.6 and we will transfuse as necessary. The patient will remain on high-dose dexamethasone 40 mg as ordered by the business account executive and we will monitor the blood glucose trend. The patient will continue on antibiotic therapy with Rocephin and we will follow the urine culture results. We will repeat surveillance labs in the morning. We will monitor the patient's progress and response to management. We will continue to provide general supportive care, GI and DVT prophylaxis. Further orders per attending MD and hospital course. 02/13/2025: For now, we are going to continue current management for the pat ient. She remains on room air and tolerating well. Per the rivet tosser, the patient is to start off with clear liquid diet, Carafate suspension and high dose PPI. Also recommended hematology consultation for possible octreotide therapy. The patient is currently receiving Venofer infusion. We will continue to monitor the H&H trend. Appreciate the input of the treating specialist. I discussed the findings and plan for further management with the patient. I believe she is stable enough and can be transferred out of the ICU. We will monitor the patient's progress and response to management. We will continue to provide general supportive care, GI and DVT prophylaxis. Further orders per attending MD and hospital course. NEURO: Minimize central acting medications as possible. Maintain fall precautions, adequate lighting during the day PULMONARY: Supplemental 02 as needed. Maintain aspiration precautions at all times CARDIOVASCULAR: Follow hemodynamics. Vital signs per facility protocol GI & NUTRITION: Continue with nutritional support. Continue stool softeners and laxatives as needed. KIDNEYS & ELECTROLYTES: Strict monitoring of intake, output and overall fluid balance. Avoid nephrotoxic medications to the extent possible. Medications to be dosed according to renal function. Monitor electrolytes and replace as needed ENDOCRINE: Maintain blood glucose between 100-180 at all times. Hypoglycemia protocol in place INFECTIOUS DISEASE: Trend temperature, WBC and procalcitonin level Follow cultures, deescalate antibiotics as soon as possible. Panculture if new onset fever ONCOLOGY/HEMATOLOGY/COAGULATION: Monitor for s/s of bleeding Monitor hemoglobin, coagulation studies as needed SKIN: Pressure ulcer prevention per facility protocol Specialty mattress ORTHO/REHAB: Continue PT/OT Prophylaxis: Continue GI and DVT prophylaxis Code Status: Full Resuscitation Disposition: TBD Patient was seen and case discussed with tristan RANDALL. Plan of care was discussed and agreed upon. CARLOS LOPEZ NP Feb 13, 2025 15:15
[2025-02-13] MEDS ORDERED: CARAL PO (18:44)
--- NOTE | 2025-02-13 19:00 | NUR ---
DISCHARGE DISCHARGE INSTRUCTIONS GIVEN TO PT, NO QUESTIONS VOICED AT THIS TIME. 18G IV TO RIGHT AC AND 20G IV TO RIGHT WRIST DISCONTINUED. 2X2 AND TAPE APPLIED TO SITES. INSTRUCTED PT TO CALL MD OFFICES FOR FOLLOW UP APPOINTMENTS. PT VERBALIZED UNDERSTANDING.
--- NOTE | 2025-02-14 08:35 | DS ---
Discharge Summary Hospital Course Summary: date of service 02/13/25 This is a 59-year-old female with underlying history of gastric antral vascular ectasia, history of angioectasias involving the stomach requiring endoscopy, chronic anemia with iron deficiency on outpatient IV iron infusion therapy, hypothyroidism, obesity who presented to the ER February 11, 2025 for further evaluation of fatigue, shortness of breath and dyspnea on exertion. Symptoms have been ongoing for the past and has been progressively getting worse. Patient reports having generalized debility as well. Patient reports that she has had history of chronic anemia and has previously needed blood transfusion. Her hemoglobin usually runs close to 8-10. She is followed by Dr. Slaughter with Hematology as outpatient and is on outpatient IV iron therapy. Her last dose of IV iron infusion therapy was in October this year. Last time, patient needed blood transfusion was about 3-4 years ago. Patient has had previous endoscopy with most recent being in 08/2024 at [facility] where patient was found to have angioectasias involving the stomach requiring argon plasma coagulation. Patient was also found to have LA grade a reflux esophagitis and chronic gastritis. Patient denied noticing overt signs of GI bleeding and denies any melena, hematochezia, or hematemesis. She denied previous history of AR or cardiac comorbidities. On presentation to the hospital, patient was noted to be afebrile with T-max of 98.1 F, blood pressure of 123/46, and heart rate of 76. Labs on presentation showed WBC count of 5400, hemoglobin 5.7, MCV of 62, plat elet count of 137997. BMP remarkable for corrected sodium of 136, potassium 4.1, creatinine 0.5, blood glucose of 380. Patient admitted for management of severe anemia with iron deficiency in the setting of chronic angioectasias in the stomach with concerns for chronic GI bleeding. Patient noted to have multiple antibodies on type and screen with a positive Ritchie test 02/12 patient is seen and examined at bedside, case discussed with the RN, patient on dexamethasone and iron IV, alert oriented x3, hemodynamically stable, afebrile, hemoglobin today 6.0. 02/13 patient remains admitted to the ICU, alert oriented x3, hemodynamically stable, getting her last dose of Venofer IV, BP 131/76, afebrile, saturating normal on room air. Hemoglobin today of 6.0, hematocrit 25.1. EGD done yesterday, impression: -normal esophagus -gastric antral vascular ectasia. -multiple bleeding UA to assist in the stomach. Treated with the argon plasma coagulation. -normal duodenal bulb and 2nd portion of the duodenum. -no specimens collected. Recommendations: -Clear liquid diet. -Carafate suspension -high-dose PPIs. -consider discussion with Hematology for possible octreotide therapy Patient tolerating diet, alert oriented x3, we will like to be discharged home. From Hematology standpoint, okay for the patient to be discharged home as well. Patient to follow up with GI as an outpatient and to return to the hospital if her condition changes. Patient agreed with plan and understood the information provided. Switch Engineer(s): GI and hematology Procedure(s): EGD done yesterday, impression: -normal esophagus -gastric antral vascular ectasia. -multiple bleeding UA to assist in the stomach. Treated with the argon plasma coagulation. -normal duodenal bulb and 2nd portion of the duodenum. -no specimens collected. Recommendations: -Clear liquid diet. -Carafate suspension -high-dose PPIs. 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 From Hematology standpoint, okay for the patient to be discharged home as well. Patient to follow up with GI as an outpatient and to return to the hospital if her condition changes. Patient agreed with plan and understood the information provided. Home Medications: Reported Medications Sucralfate (Carafate Susp) 1 Gram/10 Ml Susp, 10 ML PO Q8H for 30 Days, #1260 ML 0 Refills before food and bedtime 02/13/25 Metoclopramide HCl (Reglan 10 mg Tab) 10 Mg Tablet, 10 MG PO BID, TAB 07/15/24 [Prilosec] No Conflict Check, 40 MG PO BID 07/15/24 Levothyroxine Sodium (Levothyroxine) 25 Mcg Capsule, 25 MCG PO HS, CAP 07/15/24 Metformin HCl (Metformin HCl ER) 1,000 Mg Tab.er.24, 1000 MG PO BID 07/15/24 Insulin Glargine,Hum.rec.anlog (Basaglar Kwikpen U-100) 100 Unit/Ml (3 Ml) Insuln.pen, 100 UNIT SQ HS, SYRINGE 07/15/24 Time spent arranging discharge: 31-60 minutes CHRISTEL BANEGAS MD Feb 14, 2025 08:35
--- NOTE | 2025-02-16 14:45 | NUR ---
Transitional Phone Call Attempted to call twice, left message [phone] and no return call.
== END 2025-02-13 19:00 | disposition home or self-care (01) | DRG 378 ==
LOC: EDH 09:04 → EDHIP 16:22 → 2BH 22:00
PROVIDERS: ADMIT Internal Medicine; ATTEND Internal Medicine
PROC: 0W3P8ZZ Control Bleeding in Gastrointestinal Tract, Via Natural or Artificial Opening Endoscopic (ICD-10-PCS; principal; 2025-02-13)
DX: K31.811 Angiodysplasia of stomach and duodenum with bleeding (principal); D59.10 Autoimmune hemolytic anemia, unspecified; N30.00 Acute cystitis without hematuria; Z68.42 Body mass index [BMI] 45.0-49.9, adult; D50.9 Iron deficiency anemia, unspecified; K21.00 Gastro-esophageal reflux disease with esophagitis, without bleeding; E11.65 Type 2 diabetes mellitus with hyperglycemia; E03.9 Hypothyroidism, unspecified; R06.89 Other abnormalities of breathing; I10 Essential (primary) hypertension; K29.50 Unspecified chronic gastritis without bleeding; E66.01 Morbid (severe) obesity due to excess calories; Z90.49 Acquired absence of other specified parts of digestive tract; Z90.721 Acquired absence of ovaries, unilateral
CPT/HCPCS: 36415; 43255; 71045; 80048; 80053; 80076; 81001; 82550; 82728; 82948; 83010; 83540; 83550; 83615; 83735; 83880; 84484; 85014; 85018; 85025; 85045; 85610; 85730; 86850; 86870; 86880; 86885; 86900; 86901; 86902; 86905; 86906; 86922; 87086; 87186; 93005; 93970; 99291; C1726; G0378; J0696; J1100; J1756; J1815; J2405; J2470; J2704; J7030; J7050; A4215; A4222; A4223; A4620; A7002; J3490